=== PATIENT | female | born 1945 | race Caucasian/White ===

== ENCOUNTER → 2018-08-07 | Outpatient (CLI) | payer MEDICARE ==
--- NOTE | 2018-08-13 08:35 | MM ---
Reason for exam: screening (asymptomatic). Last mammogram was performed 1 year ago. History: Patient is postmenopausal. Benign excisional biopsy of the right breast. Taking estrogen beginning at age 34. Physical Findings: A clinical breast exam by your physician is recommended on an annual basis and results should be correlated with mammographic findings. MG Screening Mammo w CAD Bilateral CC and MLO view(s) were taken. Prior study comparison: August 07, 2017, mammogram, performed at [facility]. September 06, 2016, mammogram, performed at [facility]. January 02, 2015, mammogram, performed at [facility]. October 14, 2008, right breast mammogram dig work up. September 30, 2008, bilateral digital screening mammogram. The breast tissue is extremely dense which could obscure a lesion on mammography. No significant changes when compared with prior studies. ASSESSMENT: Benign, BI-RAD 2 RECOMMENDATION: Routine screening mammogram of both breasts in 1 year.
== END | disposition home or self-care (01) ==
LOC: RADMAMWWP 10:59
PROVIDERS: ATTEND Obstetrics & Gynecology
DX: Z12.31 Encounter for screening mammogram for malignant neoplasm of breast (principal)
CPT/HCPCS: 77067

== ENCOUNTER → 2018-08-07 | Outpatient (CLI) | payer MEDICARE ==
[2018-08-07 10:21] VITALS: BP 112/63; PULSE 68
--- NOTE | 2018-08-07 11:07 | P.HPOB ---
History of Present Illness H&P Date: 08/07/18 Chief Complaint: The patient is here for her routine gynecologic exam and mammogram. This is a 72-year-old with an LMP of 1984. She is status post CLARISSA BSO for uterine fibroids. The patient is here to establish with this office. It has been more than 5 years since her last pelvic exam. She is without gynecologic complaints. Review of Systems She has lost about 13 pounds over the past year. She attributes this to one of her medications. She denies respiratory, cardiac and G.I. problems. She denies maltreatment or problems with falling. : she denies any significant problems with urinary leakage. Past Medical History Past Medical History: Hyperlipidemia, Hypertension, Neurologic Disorder (Brain tumor followed conservatively), Seizure Disorder (Complex partial seizures), Sleep Apnea/CPAP/BIPAP, Thyroid Disorder Additional Past Medical History / Comment(s): Interstitial cystitis, Intraparenchymal cyst,brain tumor since approximately 2005,complex partial seizures,hemorrhoids. 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 History of Any Multi-Drug Resistant Organisms: None Reported Past Surgical History: Appendectomy (At time of hysterectomy), Breast Surgery ( Right biopsy), Hysterectomy (CLARISSA BSO in 1984), Tonsillectomy Additional Past Surgical History / Comment(s): Cataract r eye implant,l eye implant. Colonoscopy 2013 (multiple in past). Past Psychological History: No Psychological Hx Reported Smoking Status: Never smoker Past Alcohol Use History: None Reported Past Drug Use History: None Reported Additional History: She has been since 1964. She is retired. She power in [place]. - Past Family History Father Family Medical History: Cancer (Colon cancer) Additional Family Medical History / Comment(s): Paternal grandfather and grandmother both had colon cancer. Mother Additional Family Medical History / Comment(s): Dementia Sister(s) Family Medical History: Diabetes Mellitus Medications and Allergies Home Medications Medication Instructions Recorded Confirmed Type Atorvastatin [Lipitor] 10 mg PO DAILY 08/07/18 08/07/18 History Biotin 2,000 mcg PO 08/07/18 History Carvedilol [Coreg] 6.25 mg PO DAILY 08/07/18 08/07/18 History Carvedilol [Coreg] PO DAILY 08/07/18 History Cholecalciferol (Vitamin D3) 2,000 cap PO DAILY 08/07/18 08/07/18 History [Vitamin D3] Diazepam [Valium] PO HS 08/07/18 History Famotidine [Pepcid] 20 mg PO BID 08/07/18 08/07/18 History Levothyroxine Sodium [Tirosint] 0.05 mcg PO DAILY 08/07/18 08/07/18 History Multivitamin [Multivitamins Adult PO DAILY 08/07/18 History Gummies] Spironolactone-Hctz 25-25Mg tab PO DAILY 08/07/18 History [Aldactazide 25-25 MG] Ubidecarenone [Co Q-10] 200 mg PO DAILY 08/07/18 08/07/18 History lamoTRIgine [LaMICtal] 75 mg PO DAILY 08/07/18 08/07/18 History levETIRAcetam [Keppra] 750 mg PO DAILY 08/07/18 08/07/18 History Allergies Allergy/AdvReac Type Severity Reaction Status Date / Time iodine AdvReac Intermediate Nausea & Unverified 08/07/18 10:49 Vomiting orphenadrine [From Norflex] AdvReac Intermediate Nausea Unverified 08/07/18 10: 49 phenobarbital AdvReac Intermediate Nausea Unverified 08/07/18 10:49 propranolol [From Inderal LA] AdvReac Intermediate Nausea Unverified 08/07/18 10 :49 sulfabenzamide AdvReac Intermediate Nausea Unverified 08/07/18 10:49 erythromycin base AdvReac Nausea Unverified 08/07/18 10:49 Milk Containing Products AdvReac Diarrhea Unverified 08/07/18 10:49 [Dairy] ofloxacin [From Floxin] AdvReac Nausea Unverified 08/07/18 10:49 shellfish derived [Shellfish] AdvReac Rash/Hives Unverified 08/07/18 10:49 Sulfa (Sulfonamide AdvReac Nausea & Unverified 08/07/18 10:49 Antibiotics) Vomiting terfenadine [From Seldane] AdvReac Nausea Unverified 08/07/18 10:49 Exam Vital Signs Pulse BP 08/07/18 10:17 68 112/63 Intake and Output 08/06/18 08/07/18 08/07/18 22:59 06:59 14:59 Other: Weight 53.07 kg Temperature 98.2, height 5'4", weight 117 pounds, BMI 20.1. This is a well-developed well-nourished white female who is alert and oriented times 3 in no acute distress. HEENT: Within normal limits. NECK: Supple without mass or thyromegaly. CHEST AND LUNGS: Clear to auscultation. HEART: Regular rate and rhythm. BREASTS: Are without mass or discharge. AXILLARY EXAM: Negative for adenopathy. BACK: Negative for CVA tenderness. ABDOMEN: Soft, nontender, without palpable masses. PELVIC EXAM: External genitalia appears normal with moderate atrophy. Vagina appears normal with moderate atrophy. There is no evidence of prolapse. Bimanual examination is negative for mass or tenderness. RECTAL EXAM: Rectovaginal exam is negative for mass or tenderness and is negative for occult blood. EXTREMITIES: Nontender. IMPRESSION: 1. 72-year-old menopausal female who is status post CLARISSA BSO for benign reasons with normal gynecologic exam. PLAN: 1. Pap smears have been discontinued. 2. Self breast awareness was discussed with the patient. 3. Screening mammogram will be done today. 4. Osteoporosis prevention was discussed. She states she had one bone density test done several years ago and she believes it was normal. We will plan on repeating the bone density test next year. 5. She did get her flu shot this fall. 6. She will return in one year.
== END ==
LOC: WWCWWP 09:15
PROVIDERS: ATTEND Obstetrics & Gynecology
DX: Z53.9 Procedure and treatment not carried out, unspecified reason (principal)

== ENCOUNTER → 2019-09-03 | Outpatient (CLI) | payer MEDICARE ==
[2019-09-03 10:29] VITALS: BP 134/78; PULSE 63; RESP 18; TEMP 97.8
--- NOTE | 2019-09-03 11:09 | P.HPOB ---
History of Present Illness H&P Date: 09/03/19 Chief Complaint: The patient is here for her routine gynecologic exam and ma mmogram. This is a 74-year-old with an LMP of 1984. The patient is status post CLARISSA/BSO for uterine fibroids. The patient is without gynecologic complaints. Review of Systems She has lost 3 pounds over the past year. She denies respiratory, cardiac and G.I. problems. She denies maltreatment or problems with falling. : she denies any significant problems with urinary leakage. Past Medical History Past Medical History: Hypertension, Sleep Apnea/CPAP/BIPAP, Thyroid Disorder Additional Past Medical History / Comment(s): Interstitial cystitis,Intraparenchymal cyst,brain tumor,high cholesterol,complex partial seizures,hemmerroids. 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 History of Any Multi-Drug Resistant Organisms: None Reported Past Surgical History: Hysterectomy, Tonsillectomy Additional Past Surgical History / Comment(s): CLARISSA/BSO in 1984. Right breast biopsy. Cataract r eye implant,L eye implant. Colonoscopy 2013(multiple in past, next after 5yrs). Past Psychological History: No Psychological Hx Reported Smoking Status: Never smoker Past Alcohol Use History: None Reported Past Drug Use History: None Reported Additional History: She has been since 1965 and is retired. She is sexually active. She power in [place]. - Past Family History Father Family Medical History: Cancer Additional Family Medical History / Comment(s): Colon cancer. Paternal grandfather and grandmother both had colon cancer. Mother Additional Family Medical History / Comment(s): Dementia Sister(s) Family Medical History: Diabetes Mellitus Medications and Allergies Home Medications Medication Instructions Recorded Confirmed Type Atorvastatin [Lipitor] 10 mg PO DAILY 08/07/18 09/03/19 History Biotin 2,000 mcg PO DAILY 08/07/18 09/03/19 History Carvedilol [Coreg] 6.25 mg PO DAILY 08/07/18 09/03/19 History Cholecalciferol (Vitamin D3) 2,000 cap PO DAILY 08/07/18 09/03/19 History [Vitamin D3] Diazepam [Valium] 0.5 mg PO BID 08/07/18 09/03/19 History Famotidine [Pepcid] 20 mg PO BID 08/07/18 09/03/19 History Levothyroxine Sodium [Tirosint] 0.05 mcg PO DAILY 08/07/18 09/03/19 History Multivitamin [Multivitamins Adult 1 tab PO DAILY 08/07/18 09/03/19 History Gummies] Spironolactone-Hctz 25-25Mg 1 tab PO DAILY 08/07/18 09/03/19 History [Aldactazide 25-25 MG] Ubidecarenone [Co Q-10] 200 mg PO DAILY 08/07/18 09/03/19 History lamoTRIgine [LaMICtal] 75 mg PO DAILY 08/07/18 09/03/19 History carBAMazepine [TEGretol] 200 mg PO Q12H 09/03/19 09/03/19 History Allergies Allergy/AdvReac Type Severity Reaction Status Date / Time iodine AdvReac Intermediate Nausea & Unverified 09/03/19 10:30 Vomiting orphenadrine [From Norflex] AdvReac Intermediate Nausea Unverified 09/03/19 10:30 phenobarbital AdvReac Intermediate Nausea Unverified 09/03/19 10:30 propranolol [From Inderal LA] AdvReac Intermediate Nausea Unverified 09/03/19 10:30 sulfabenzamide AdvReac Intermediate Nausea Unverified 09/03/19 10:30 erythromycin base AdvReac Nausea Unverified 09/03/19 10:30 Milk Containing Products AdvReac Diarrhea Unverified 09/03/19 10:30 [Dairy] ofloxacin [From Floxin] AdvReac Nausea Unverified 09/03/19 10:30 shellfish derived [Shellfish] AdvReac Rash/Hives Unverified 09/03/19 10:30 Sulfa (Sulfonamide AdvReac Nausea & Unverified 09/03/19 10:30 Antibiotics) Vomiting terfenadine [From Seldane] AdvReac Nausea Unverified 09/03/19 10:30 Exam Vital Signs Temp Pulse Resp BP Pulse Ox 09/03/19 10:24 97.8 F 63 18 134/78 100 Intake and Output 09/02/19 09/03/19 09/03/19 22:59 06:59 14:59 Other: Weight 51.71 kg Height 5 feet 4 inches, weight 114 pounds, BMI 19.6. This is a well-developed well-nourished white female who is alert and oriented times 3 in no acute distress. HEENT: Within normal limits. NECK: Supple without mass or thyromegaly. CHEST AND LUNGS: Clear to auscultation. HEART: Regular rate and rhythm. BREASTS: Are without mass or discharge. AXILLARY EXAM: Negative for adenopathy. BACK: Negative for CVA tenderness. ABDOMEN: Soft, nontender, without palpable masses. PELVIC EXAM: External genitalia appears normal with moderate atrophy. Vagina appears normal with mild to moderate atrophy. There is no evidence of prolapse. Bimanual examination is negative for mass or tenderness. RECTAL EXAM: Rectovaginal exam is negative for mass or tenderness and is negative for occult blood. EXTREMITIES: Nontender. IMPRESSION: 1. 74-year-old menopausal female status post CLARISSA/BSO for benign reasons with normal gynecologic exam. PLAN: 1. Pap smears have been discontinued. 2. Self breast awareness was discussed with the patient. 3. Screening mammogram will be done today. 4. Osteoporosis prevention was discussed. I have stressed the importance of adequate calcium, vitamin D and regular exercise. Recommended amounts of calcium and vitamin D were also discussed. I have recommended bone density testing since it has been many years since her last one. The order slip will be mailed to the patient. 5. She did receive her flu shot this fall. 6. The patient was advised to return in 1-2 years for her well woman examination.
--- NOTE | 2019-09-04 10:13 | MM ---
Reason for exam: screening (asymptomatic). Last mammogram was performed 1 year and 1 month ago. History: Patient is postmenopausal. Benign excisional biopsy of the right breast. Took hormonal contraceptives for 6 months. Took estrogen beginning at age 34. Physical Findings: A clinical breast exam by your physician is recommended on an annual basis and results should be correlated with mammographic findings. MG 3D Screening Mammo W/Cad Bilateral CC and MLO view(s) were taken. Prior study comparison: August 07, 2018, bilateral MG screening mammo w CAD. August 07, 2017, mammogram, performed at [facility]. The breast tissue is extremely dense which could obscure a lesion on mammography. There is no discrete abnormality. ASSESSMENT: Negative, BI-RAD 1 RECOMMENDATION: Routine screening mammogram of both breasts in 1 year.
== END ==
LOC: WWCWWP 10:01
PROVIDERS: ATTEND Obstetrics & Gynecology
DX: Z12.31 Encounter for screening mammogram for malignant neoplasm of breast (principal)
CPT/HCPCS: 77063; 77067

== ENCOUNTER → 2019-09-19 | Outpatient (CLI) | payer MEDICARE ==
--- NOTE | 2019-09-19 13:45 | BD ---
EXAMINATION TYPE: Axial Bone Density DATE OF EXAM: 09/19/2019 COMPARISON: NONE CLINICAL HISTORY: 44 YR OLD FEMALE.....ICD-10 CODE: POST MENOPAUSAL STATUS Height: 62.5 Weight: 114 FRAX RISK QUESTIONS: History of Fracture in Adulthood: YES Secondary Osteoporosis: YES 3. Menopause before 45: YES, AT 34 YRS OLD RISK FACTORS HISTORY OF: HX OF TOE FXs > AGE 50 Diet low in dairy products/other sources of calcium: YES Postmenopausal woman: YES AT AGE 34...TOTAL HYST If Premenopausal, do you have irregular periods: YES, IN THE PAST FOR ABOUT 3 YRS Hyperparathyroidism: NO Adrenal Insufficiency: NO MEDICATIONS: Thyroid Medications: YES, SYNTHROID, FOR ABOUT 40 YRS Additional Medications: BP MEDS, ANTI SEIZURE MED, VIT D, STATIN FOR CHOLESTEROL. Additional History: HX OF BRAIN TUMOR, CHOLESTEROL, HYPERTENSION EXAM MEASUREMENTS: Bone mineral densitometry was performed using the [employer]. Bone mineral density as measured about the Lumbar spine is: ----- L1-L4(G/cm2): 0.871 T Score Values are as follows: ----- L1: -3.5 ----- L2: -3.0 ----- L3: -2.2 ----- L4: -2.1 ----- L1-L4: -2.6 Bone mineral density FIRST DEXA SCAN.......BASELINE STUDY Bone mineral density about the R hip (g/cm2): 0.656 Bone mineral density about the L hip (g/cm2): 0.646 T Score values are as follows: -----R Neck: -2.5 -----L Neck: -2.6 -----R Total: -2.8 -----L Total: -2.9 Bone mineral density FIRST DEXA SCAN......BASELINE STUDY FRAX%s: THERE IS A 22.4% CHANCE FOR A MAJOR OSTEOPOROTIC FX AND A 7.4% FOR HIP.....PROBABILITY FO R FX IN 10 YRS TIME IMPRESSION: Osteoporosis bilateral femoral and lumbar spine. NOTE: T-SCORE=SD OF THE YOUNG ADULT MEAN.
== END ==
LOC: RADBDWWP 10:33
PROVIDERS: ATTEND Obstetrics & Gynecology
DX: M81.8 Other osteoporosis without current pathological fracture (principal); Z78.0 Asymptomatic menopausal state
CPT/HCPCS: 77080

== ENCOUNTER → 2020-09-15 | Outpatient (CLI) | payer MEDICARE ==
[~2020-09-15] MED LIST: DENOSUMAB 60 MG/ML 1 ML SYRINGE SQ NR
[2020-09-15 10:31] VITALS: BP 168/84; PULSE 72; RESP 16; TEMP 98.2
== END | disposition home or self-care (01) ==
LOC: PROCWHC3 09:48
PROVIDERS: ATTEND Internal Medicine Geriatric Medicine
DX: M81.0 Age-related osteoporosis without current pathological fracture (principal)
CPT/HCPCS: 96372; J0897

== ENCOUNTER → 2020-11-03 | Outpatient (CLI) | payer MEDICARE ==
[2020-11-03 09:44] VITALS: BP 164/80; PULSE 86; RESP 18; TEMP 97.7
--- NOTE | 2020-11-03 10:15 | P.HPOB ---
History of Present Illness H&P Date: 11/03/20 Chief Complaint: The patient is here for her routine gynecologic exam and ma mmogram. This is a 75-year-old with an LMP of 1984. She is status post CLARISSA/BSO for benign reasons. She is without gynecologic complaints. She is no longer sexually active. Review of Systems Weight has been stable. She denies respiratory, cardiac and G.I. problems. She denies maltreatment. She has fallen this past year without significant injury and she attributes this to her seizure medications. Past Medical History Past Medical History: Hypertension, Sleep Apnea/CPAP/BIPAP, Thyroid Disorder Additional Past Medical History / Comment(s): Interstitial cystitis,Intraparenchymal cyst,brain tumor,high cholesterol,complex partial seizures,hemmerroids. 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 OSTEOPOROSIS. History of Any Multi-Drug Resistant Organisms: None Reported Past Surgical History: Hysterectomy, Tonsillectomy Additional Past Surgical History / Comment(s): CLARISSA/BSO in 1984. Right breast biopsy. Cataract r eye implant,L eye implant. Colonoscopy 2019(multiple in past, next after 5yrs). Past Anesthesia/Blood Transfusion Reactions: No Reported Reaction Past Psychological History: No Psychological Hx Reported Smoking Status: Never smoker Past Alcohol Use History: None Reported Past Drug Use History: None Reported Additional History: She has been since 1964 and is retired. She is no longer sexually active. She typically power in [place] in her RV. - Past Family History Father Family Medical History: Cancer Additional Family Medical History / Comment(s): Colon cancer. Paternal grandfather and grandmother both had colon cancer. Mother Additional Family Medical History / Comment(s): Dementia Sister(s) Family Medical History: Diabetes Mellitus Medications and Allergies Home Medications Medication Instructions Recorded Confirmed Type Atorvastatin [Lipitor] 10 mg PO DAILY 08/07/18 11/03/20 History Biotin 2,000 mcg PO DAILY 08/07/18 11/03/20 History Cholecalciferol (Vitamin D3) 2,000 cap PO DAILY 08/07/18 11/03/20 History [Vitamin D3] Levothyroxine Sodium [Tirosint] 0.05 mcg PO DAILY 08/07/18 11/03/20 History Multivitamin [Multivitamins Adult 1 tab PO DAILY 08/07/18 11/03/20 History Gummies] Spironolactone-Hctz 25-25Mg 1 tab PO DAILY 08/07/18 11/03/20 History [Aldactazide 25-25 MG] Ubidecarenone [Co Q-10] 200 mg PO DAILY 08/07/18 11/03/20 History carvediloL [Coreg] 6.25 mg PO BID 08/07/18 11/03/20 History lamoTRIgine [LaMICtal] 200 mg PO DAILY 08/07/18 11/03/20 History carBAMazepine [TEGretol] 100 mg PO DAILY 09/03/19 11/03/20 History carBAMazepine [TEGretol] 500 mg PO HS 09/15/20 11/03/20 History lamoTRIgine [LaMICtal] 300 mg PO HS 09/15/20 11/03/20 History Denosumab [Prolia] 60 mg SQ ONCE 11/03/20 11/03/20 History L.acidoph,Paracasei, B.lactis 1 each PO DAILY 11/03/20 11/03/20 History [Probiotic] LORazepam [Ativan] 0.25 mg PO QAM 11/03/20 11/03/20 History Vitafusion 1 tab PO DAILY 11/03/20 11/03/20 History Allergies Allergy/AdvReac Type Severity Reaction Status Date / Time iodine AdvReac Intermediate Nausea & Unverified 11/03/20 09:36 Vomiting orphenadrine [From Norflex] AdvReac Intermediate Nausea Unverified 11/03/20 09:36 phenobarbital AdvReac Intermediate Nausea Unverified 11/03/20 09:36 propranolol [From Inderal LA] AdvReac Intermediate Nausea Unverified 11/03/20 09:36 sulfabenzamide AdvReac Intermediate Nausea Unverified 11/03/20 09:36 erythromycin base AdvReac Nausea Unverified 11/03/20 09:36 Milk Containing Products AdvReac Diarrhea Unverified 11/03/20 09:36 [Dairy] ofloxacin [From Floxin] AdvReac Nausea Unverified 11/03/20 09:36 shellfish derived [Shellfish] AdvReac Rash/Hives Unverified 11/03/20 09:36 Sulfa (Sulfonamide AdvReac Nausea & Unverified 11/03/20 09:36 Antibiotics) Vomiting terfenadine [From Seldane] AdvReac Nausea Unverified 11/03/20 09:36 Exam Vital Signs Temp Pulse Resp BP Pulse Ox 11/03/20 09:37 97.7 F 86 18 164/80 100 Intake and Output 11/02/20 11/03/20 11/03/20 22:59 06:59 14:59 Other: Weight 52.163 kg Height 5 feet 3 inches, weight 115 pounds, BMI 20.4. This is a well-developed well-nourished white female who is alert and oriented times 3 in no acute distress. HEENT: Within normal limits. NECK: Supple without mass or thyromegaly. CHEST AND LUNGS: Clear to auscultation. HEART: Regular rate and rhythm. BREASTS: Are without mass or discharge. AXILLARY EXAM: Negative for adenopathy. BACK: Negative for CVA tenderness. ABDOMEN: Soft, nontender, without palpable masses. PELVIC EXAM: External genitalia appears normal with a moderate atrophy. Vagina appears normal moderate atrophy. There is no evidence of prolapse. Bimanual examination is negative for mass or tenderness. RECTAL EXAM: Rectovaginal exam is negative for mass or tenderness and is negative for occult blood. EXTREMITIES: Nontender. IMPRESSION: 1. 75-year-old menopausal female status post CLARISSA/BSO for benign reasons with normal gynecologic exam. 2. History of osteoporosis on Prolia through her PCP. 3. Elevated blood pressure with history of chronic hypertension. PLAN: 1. Pap smears have been discontinued. 2. Self breast awareness was discussed with the patient. 3. Greening mammogram will be done today. 4. Her elevated blood pressure was discussed. I have recommended that she check her own blood pressure on a regular basis since she has her own blood pressure cuff. She will follow-up with Dr. Trevizo for blood pressure elevations. 5. She did get a flu shot last fall and plans to get a COVID vaccination when it becomes available to her. 6. The patient was advised to return in 1-2 years for her well woman examination.
--- NOTE | 2020-11-04 09:49 | MM ---
Reason for exam: screening (asymptomatic). Last mammogram was performed 1 year and 2 months ago. History: Patient is postmenopausal. Benign excisional biopsy of the right breast. Took hormonal contraceptives for 6 months. Took estrogen beginning at age 34. Physical Findings: A clinical breast exam by your physician is recommended on an annual basis and results should be correlated with mammographic findings. MG 3D Screening Mammo W/Cad Bilateral CC and MLO view(s) were taken. Prior study comparison: September 03, 2019, bilateral MG 3d screening mammo w/cad. August 07, 2018, bilateral MG screening mammo w CAD. The breast tissue is heterogeneously dense. This may lower the sensitivity of mammography. There is no discrete abnormality. ASSESSMENT: Benign, BI-RAD 2 RECOMMENDATION: Routine screening mammogram of both breasts in 1 year.
== END | disposition home or self-care (01) ==
LOC: WWCWWP 09:15
PROVIDERS: ATTEND Obstetrics & Gynecology
DX: Z12.31 Encounter for screening mammogram for malignant neoplasm of breast (principal)
CPT/HCPCS: 77063; 77067

== ENCOUNTER → 2021-03-17 | Outpatient (CLI) | payer MEDICARE ==
[2021-03-17 10:29] VITALS: BP 138/80; PULSE 76; RESP 16; TEMP 97.7
== END ==
LOC: PROCWHC3 10:02
PROVIDERS: ATTEND Internal Medicine Geriatric Medicine
DX: M81.0 Age-related osteoporosis without current pathological fracture (principal); Z91.041 Radiographic dye allergy status; Z88.2 Allergy status to sulfonamides; Z88.8 Allergy status to other drugs, medicaments and biological substances; Z88.1 Allergy status to other antibiotic agents; Z91.011 Allergy to milk products; Z91.013 Allergy to seafood
CPT/HCPCS: 96372; J0897

== ENCOUNTER → 2021-09-17 | Outpatient (CLI) | payer MEDICARE | END | disposition home or self-care (01) | LOC: PROCWHC3 10:09 | PROVIDERS: ATTEND Internal Medicine Geriatric Medicine | DX: M81.0 Age-related osteoporosis without current pathological fracture (principal) | CPT/HCPCS: 96372; J0897 ==

== ENCOUNTER → 2022-03-21 | Outpatient (CLI) | payer MEDICARE ==
[2022-03-21 11:41] VITALS: BP 125/80; PULSE 60; RESP 16; TEMP 97.8
== END ==
LOC: PROCWHC3 10:59
PROVIDERS: ATTEND Internal Medicine Geriatric Medicine
DX: M81.0 Age-related osteoporosis without current pathological fracture (principal); Z91.041 Radiographic dye allergy status; Z88.2 Allergy status to sulfonamides; Z88.1 Allergy status to other antibiotic agents; Z91.011 Allergy to milk products; Z91.013 Allergy to seafood
CPT/HCPCS: 96372; J0897

== ENCOUNTER 2022-06-23 11:24 | Inpatient (IN) | payer MEDICARE ==
[2022-06-23 14:58] LABS: Basophils % (A) 1 %; Eosinophils # (A) 0.1 k/uL (0-0.7); Eosinophils % (A) 3 %; HCT 34.5 % (34.0-46.0); HGB 11.6 gm/dL (11.4-16.0); Lymphocytes % (A) 29 %; MCH 34.6 pg (25.0-35.0); MCHC 33.6 g/dL (31.0-37.0); MCV 103.1 fL (80.0-100.0); Macrocytosis Slight; Mean Platelet Volume 7.9; Monocytes # (A) 0.2 k/uL (0-1.0); Monocytes % (A) 7 %; Neutrophils % (A) 58 %; Platelet Count 190 k/uL (150-450); RBC 3.35 m/uL (3.80-5.40); RDW 12.6 % (11.5-15.5); WBC 3.5 k/uL (3.8-10.6)
[2022-06-23 15:11] LABS: Albumin 4.3 g/dL (3.5-5.0); Calcium 9.3 mg/dL (8.4-10.2); Potassium 4.4 mmol/L (3.5-5.1); Total Bilirubin 0.5 mg/dL (0.2-1.3); Total Protein 6.4 g/dL (6.3-8.2)
--- NOTE | 2022-06-23 17:03 | XR ---
EXAMINATION TYPE: XR chest 2V DATE OF EXAM: 06/23/2022 COMPARISON: None HISTORY: 76-year-old female abnormal CT. Outside CT showing fluid around the heart last week per hist ory. TECHNIQUE: PA and lateral views FINDINGS: Cardiac/pericardiac silhouette is mildly enlarged. There is mild hyperinflation. Possible trace pleur al effusion on the lateral view. Focal nodularity periphery of the left upper to midlung could relate to be left anterior third rib or underlying pulmonary nodule. Otherwise, no consolidation. IMPRESSION: 1. Mild enlargement of the cardiac/pericardiac silhouette. If a recent CT showed pericardial effusion , the enlarged heart silhouette could reflect a pericardial effusion. 2. Possible underlying COPD. Clinically correlate. A trace pleural effusion is not excluded on the la teral view. 3. Either hypertrophic callus involving the left anterior third rib (relating to an old fracture) connie tanya underlying left upper lobe pulmonary nodule. Correlate with findings on outside CT.
--- NOTE | 2022-06-23 17:52 | ED ---
General Adult HPI - General Chief complaint: Recheck/Abnormal Lab/Rx Stated complaint: urogenital, fluid on heart Time Seen by Provider: 06/23/22 16:08 Source: patient Mode of arrival: ambulatory Limitations: no limitations - History of Present Illness Initial comments: Patient is a 76-year-old female with history of hypertension, hyperlipidemia, hypothyroidism, and hysterectomy who presents to the emergency department with a chief complaint of vaginal bleeding and abnormal computed tomography scan. Patient states this past Monday she woke up and noticed blood in her underwear. Denies blood thinner use. At this time she was experiencing mild lower abdominal pain. Patient had an episode of blood in urine the next day and has not had any further episodes of bleeding. She was evaluated at [facility] where CT of the abdomen was performed. CT showed moderate right-sided hydronephrosis without evidence of obstruction. Also showed an incidental finding on cardiomegaly with pericardial effusion. Patient saw her primary care provider Dr. Santhosh tejada who sent her to the emergency department for laboratory studies and echocardiogram. Patient states she feels well now and has no concerns. She denies fever, chills, chest pain, palpitations, shortness of breath, cough, abdominal pain, side pain, nausea, vomiting, blood in urine, burning with urination, blood in stool, leg swelling. Patient has never seen a tack puller and has never had an echocardiogram of her heart. - Related Data Home Medications Medication Instructions Recorded Confirmed Atorvastatin [Lipitor] 10 mg PO DAILY 08/07/18 09/17/21 Biotin [Biotin Disolve] 2,000 mcg PO DAILY 08/07/18 09/17/21 Cholecalciferol (Vitamin D3) 2,000 cap PO DAILY 08/07/18 09/17/21 [Vitamin D3] Levothyroxine Sodium [Tirosint] 0.05 mcg PO DAILY 08/07/18 09/17/21 Multivitamin [Multivitamins Adult 1 tab PO DAILY 08/07/18 09/17/21 Gummies] Spironolactone-Hctz 25-25Mg 1 tab PO BID 08/07/18 09/17/21 [Aldactazide 25-25 MG] Ubidecarenone [Co Q-10] 200 mg PO DAILY 08/07/18 09/17/21 carvediloL [Coreg] 6.25 mg PO BID 08/07/18 09/17/21 lamoTRIgine [LaMICtal] 150 mg PO DAILY 08/07/18 09/17/21 lamoTRIgine [LaMICtal] 150 mg PO HS 09/15/20 09/17/21 Denosumab [Prolia] 60 mg SQ ONCE 11/03/20 09/17/21 L.acidoph,Paracasei, B.lactis 1 each PO DAILY 11/03/20 09/17/21 [Probiotic] Vitafusion 1 tab PO DAILY 11/03/20 09/17/21 cloBAZam [Onfi] 20 mg PO BID 09/17/21 09/17/21 Allergies Allergy/AdvReac Type Severity Reaction Status Date / Time iodine AdvReac Intermediate Nausea & Verified 06/23/22 12:30 Vomiting orphenadrine [From Norflex] AdvReac Intermediate Nausea Verified 06/23/22 12:30 phenobarbital AdvReac Intermediate Nausea Verified 06/23/22 12:30 propranolol [From Inderal LA] AdvReac Intermediate Nausea Verified 06/23/22 12:30 sulfabenzamide AdvReac Intermediate Nausea Verified 06/23/22 12:30 erythromycin base AdvReac Nausea Verified 06/23/22 12:30 Milk Containing Products AdvReac Diarrhea Verified 06/23/22 12:30 [Dairy] ofloxacin [From Floxin] AdvReac Nausea Verified 06/23/22 12:30 shellfish derived [Shellfish] AdvReac Rash/Hives Verified 06/23/22 12:30 Sulfa (Sulfonamide AdvReac Nausea & Verified 06/23/22 12:30 Antibiotics) Vomiting terfenadine [From Seldane] AdvReac Nausea Verified 06/23/22 12:30 Review of Systems ROS Statement: Those systems with pertinent positive or pertinent negative responses have been documented in the HPI. ROS Other: All systems not noted in ROS Statement are negative. Past Medical History Past Medical History: Hypertension, Sleep Apnea/CPAP/BIPAP, Thyroid Disorder Additional Past Medical History / Comment(s): Interstitial cystitis,Intraparenchymal cyst,brain tumor,high cholesterol,complex partial seizures,hemmerroids. 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 OSTEOPOROSIS. History of Any Multi-Drug Resistant Organisms: None Reported Past Surgical History: Hysterectomy, Tonsillectomy Additional Past Surgical History / Comment(s): CLARISSA/BSO in 1984. Right breast biopsy. Cataract r eye implant,L eye implant. Colonoscopy 2019(multiple in past, next after 5yrs). Past Anesthesia/Blood Transfusion Reactions: No Reported Reaction Past Psychological History: No Psychological Hx Reported Smoking Status: Never smoker - Past Family History Father Family Medical History: Cancer Additional Family Medical History / Comment(s): Colon cancer. Paternal grandfather and grandmother both had colon cancer. Mother Additional Family Medical History / Comment(s): Dementia Sister(s) Family Medical History: Diabetes Mellitus General Exam Limitations: no limitations General appearance: alert, in no apparent distress Head exam: Present: atraumatic, normocephalic, normal inspection Respiratory exam: Present: normal lung sounds bilaterally. Absent: respiratory distress, wheezes, rales, rhonchi, stridor Cardiovascular Exam: Present: regular rate, normal rhythm, normal heart sounds. Absent: systolic murmur, diastolic murmur, rubs, gallop, clicks GI/Abdominal exam: Present: soft, normal bowel sounds. Absent: distended, tenderness, guarding, rebound, rigid Neurological exam: Present: alert, oriented X3, CN II-XII intact Psychiatric exam: Present: normal affect, normal mood Skin exam: Present: warm, dry, intact, normal color. Absent: rash Course Vital Signs 06/23/22 06/23/22 12:27 14:45 Temperature 98.2 F 97.3 F L Pulse Rate 60 54 L Respiratory 20 Rate Blood Pressure 118/68 127/74 O2 Sat by Pulse 99 100 Oximetry Medical Decision Making - Medical Decision Making This is a 76-year-old female who presents for evaluation of hematuria and cardiomegaly and pericardial effusion recently found in computed tomography scan. Patient well-appearing. Vital within normal limits. Patient has no concerns. No chest pain or shortness of breath. EKG shows sinus bradycardia without ST or T-wave changes. Laboratory studies obtained and are relatively unremarkable. Troponin and BNP are within normal limits. There is good kidney function. Urinalysis does not indicate infection or blood.nChest x-ray shows mild enlargement of the cardiac/. Cardiac silhouette which could reflect pericardial effusion as well as possible trace pleural effusion. Patient will be admitted for pericardial effusion. Cardiology on consult. Echo ordered for the morning as well as renal ultrasound for possible hydronephrosis. Dr. Marin my attending. - Lab Data Result diagrams: 06/23/22 14:43 06/23/22 14:43 Lab Results 06/23/22 06/23/22 06/23/22 Range/Units 14:43 14:43 14:43 WBC 3.5 L (3.8-10.6) k/uL RBC 3.35 L (3.80-5.40) m/uL Hgb 11.6 (11.4-16.0) gm/dL Hct 34.5 (34.0-46.0) % MCV 103.1 H (80.0-100.0) fL MCH 34.6 (25.0-35.0) pg MCHC 33.6 (31.0-37.0) g/dL RDW 12.6 (11.5-15.5) % Plt Count 190 (150-450) k/uL MPV 7.9 Neutrophils % 58 % Lymphocytes % 29 % Monocytes % 7 % Eosinophils % 3 % Basophils % 1 % Neutrophils # 2.0 (1.3-7.7) k/uL Lymphocytes # 1.0 (1.0-4.8) k/uL Monocytes # 0.2 (0-1.0) k/uL Eosinophils # 0.1 (0-0.7) k/uL Basophils # 0.0 (0-0.2) k/uL Macrocytosis Slight Sodium 139 (137-145) mmol/L Potassium 4.4 (3.5-5.1) mmol/L Chloride 100 (98-107) mmol/L Carbon Dioxide 31 H (22-30) mmol/L Anion Gap 8 mmol/L BUN 16 (7-17) mg/dL Creatinine 0.83 (0.52-1.04) mg/dL Est GFR (CKD-EPI)AfAm 79 (>60 ml/min/1.73 sqM) Est GFR (CKD-EPI)NonAf 69 (>60 ml/min/1.73 sqM) Glucose 83 (74-99) mg/dL Plasma Lactic Acid Tyrell (0.7-2.0) mmol/L Calcium 9.3 (8.4-10.2) mg/dL Total Bilirubin 0.5 (0.2-1.3) mg/dL AST 28 (14-36) U/L ALT 22 (4-34) U/L Alkaline Phosphatase 60 (38-126) U/L Troponin I (0.000-0.034) ng/mL NT-Pro-B Natriuret Pep pg/mL Total Protein 6.4 (6.3-8.2) g/dL Albumin 4.3 (3.5-5.0) g/dL Amylase 124 H (30-110) U/L Lipase 202 (23-300) U/L Urine Color Light Yellow Urine Appearance Clear (Clear) Urine pH 6.5 (5.0-8.0) Ur Specific [place] 1.010 (1.001-1.035) Urine Protein Negative (Negative) Urine Glucose (UA) Negative (Negative) Urine Ketones Negative (Negative) Urine Blood Negative (Negative) Urine Nitrite Negative (Negative) Urine Bilirubin Negative (Negative) Urine Urobilinogen <2.0 (<2.0) mg/dL Ur Leukocyte Esterase Small H (Negative) Urine WBC 2 (0-5) /hpf Ur Squamous Epith Cells <1 (0-4) /hpf 06/23/22 06/23/22 06/23/22 Range/Units 14:43 14:43 14:43 WBC (3.8-10.6) k/uL RBC (3.80-5.40) m/uL Hgb (11.4-16.0) gm/dL Hct (34.0-46.0) % MCV (80.0-100.0) fL MCH (25.0-35.0) pg MCHC (31.0-37.0) g/dL RDW (11.5-15.5) % Plt Count (150-450) k/uL MPV Neutrophils % % Lymphocytes % % Monocytes % % Eosinophils % % Basophils % % Neutrophils # (1.3-7.7) k/uL Lymphocytes # (1.0-4.8) k/uL Monocytes # (0-1.0) k/uL Eosinophils # (0-0.7) k/uL Basophils # (0-0.2) k/uL Macrocytosis Sodium (137-145) mmol/L Potassium (3.5-5.1) mmol/L Chloride (98-107) mmol/L Carbon Dioxide (22-30) mmol/L Anion Gap mmol/L BUN (7-17) mg/dL Creatinine (0.52-1.04) mg/dL Est GFR (CKD-EPI)AfAm (>60 ml/min/1.73 sqM) Est GFR (CKD-EPI)NonAf (>60 ml/min/1.73 sqM) Glucose (74-99) mg/dL Plasma Lactic Acid Tyrell <0.5 L (0.7-2.0) mmol/L Calcium (8.4-10.2) mg/dL Total Bilirubin (0.2-1.3) mg/dL AST (14-36) U/L ALT (4-34) U/L Alkaline Phosphatase (38-126) U/L Troponin I <0.012 (0.000-0.034) ng/mL NT-Pro-B Natriuret Pep 329 pg/mL Total Protein (6.3-8.2) g/dL Albumin (3.5-5.0) g/dL Amylase (30-110) U/L Lipase (23-300) U/L Urine Color Urine Appearance (Clear) Urine pH (5.0-8.0) Ur Specific [place] (1.001-1.035) Urine Protein (Negative) Urine Glucose (UA) (Negative) Urine Ketones (Negative) Urine Blood (Negative) Urine Nitrite (Negative) Urine Bilirubin (Negative) Urine Urobilinogen (<2.0) mg/dL Ur Leukocyte Esterase (Negative) Urine WBC (0-5) /hpf Ur Squamous Epith Cells (0-4) /hpf Disposition Clinical Impression: Pericardial effusion, Hematuria Disposition: ADMITTED IP TO THIS HOSP Condition: Good Referrals: Cordell Trevizo MD [Primary Care Provider] - 1-2 days Decision Time: 20:04
[2022-06-23 19:11] LABS: Appearance,Urine Clear (Clear); Bilirubin,Urine Negative (Negative); Blood,Urine Negative (Negative); Color,Urine Light Yellow; Glucose,Urine (UA) Negative (Negative); Ketones,Urine Negative (Negative); Leukocyte Esterase,Urine Small (Negative); Nitrite,Urine Negative (Negative); PH, Urine 6.5 (5.0-8.0); Protein,Urine Negative (Negative); Squamous Epithelial Cell,Urine <1 /hpf (0-4); Urobilinogen,Urine <2.0 mg/dL (<2.0); WBC,Urine 2 /hpf (0-5)
[2022-06-23] MEDS: lamoTRIgine 100 MG TAB PO SCH (20:52)
[2022-06-23] MEDS: ATORVASTATIN 10 MG TAB PO SCH (20:54)
[2022-06-23] MEDS: CHOLECALCIFEROL 25 MCG (1000 IU) TABLET PO SCH (20:54)
[2022-06-23] MEDS: BIOTIN 1000 MCG PO SCH (20:57)
[2022-06-23] MEDS: SODIUM CHLORIDE 0.9% 1,000 ML IV SCH (20:57)
[2022-06-23] MEDS ORDERED: carvediloL 6.25 MG TAB PO SCH (21:00)
[2022-06-23] MEDS ORDERED: lamoTRIgine 100 MG TAB PO SCH (21:00)
[2022-06-23] MEDS: SPIRONOLACTONE-HCTZ 25-25MG 1 EACH TAB PO SCH (21:37)
[2022-06-23] MEDS: traZODone HCL 100 MG TAB PO SCH (21:38)
[2022-06-23] MEDS: CLOBAZAM 20 MG PO SCH (22:43)
[2022-06-24] MEDS: PANTOPRAZOLE 40 MG TABLET PO SCH (06:14)
[2022-06-24] MEDS: LEVOTHYROXINE 50 MCG TAB PO SCH (06:15)
[2022-06-24] MEDS: carvediloL 6.25 MG TAB PO SCH ×2 (06:15→18:03)
[2022-06-24] MEDS ORDERED: MULTIVITAMINS, THERA 1 EACH TAB PO SCH (09:00)
[2022-06-24] MEDS ORDERED: lamoTRIgine 100 MG TAB PO SCH (09:00)
[2022-06-24] MEDS ORDERED: VITAFUSION PO SCH (09:00)
[2022-06-24] MEDS: BIOTIN 1000 MCG PO SCH (10:06)
[2022-06-24] MEDS: CLOBAZAM 20 MG PO SCH (10:06)
[2022-06-24] MEDS: CHOLECALCIFEROL 25 MCG (1000 IU) TABLET PO SCH (10:07)
[2022-06-24] MEDS: lamoTRIgine 100 MG TAB PO SCH ×2 (10:08→20:48)
[2022-06-24] MEDS: SPIRONOLACTONE-HCTZ 25-25MG 1 EACH TAB PO SCH (10:09)
[2022-06-24] MEDS: LACTOBACILLUS ACIDOPH & BULGAR 1 EACH PACKET PO SCH (10:10)
[2022-06-24] MEDS: NON FORMULARY DRUG (Ubidecarenone [Co Q-10] 100 MG Capsule) PO SCH (10:14)
--- NOTE | 2022-06-24 10:29 | US ---
EXAMINATION TYPE: US renals and bladder DATE OF EXAM: 06/24/2022 COMPARISON: NONE Exam done portable CLINICAL HISTORY: right hydronephrosis on previous CT. EXAM MEASUREMENTS: Right Kidney: 11.7 x 5.1 x 4.7 cm Left Kidney: 10.9 x 4.8 x 4.4 cm Right Kidney: hydronephrosis, 1.6cm cyst superior pole Left Kidney: wnl Bladder: wnl Bilateral Jets seen: right jet not seen, left jet seen 9.1 x 7.1 x 6.9cm hypoechoic area left adnexa, considered pelvic ultrasound for additional evaluati on. IMPRESSION: 1. Right hydronephrosis. 2. Right renal cyst. 3. Hypoechoic area within the left adnexa, pelvic ultrasound recommended for additional workup.
--- NOTE | 2022-06-24 12:21 | CA ---
Transthoracic Echo Report Name: Nan Blackmon Age: 76 Gender: F : 1945 Exam Date: 06/24/2022 08:31 Exam Location: [facility] Ht (in): 64 Wt (lb): 134 Ordering Physician: Denice Trent Attending/Referring Phys: Shot Man Ne Coughlin, MIGUELITO Procedure CPT: Indications: pericardial effusion Cardiac Hx: Technical Quality: Good Contrast 1: Total Dose (mL): Contrast 2: Total Dose (mL): MEASUREMENTS (Male / Female) Normal Values 2D ECHO LV Diastolic Diameter PLAX 4.7 cm 4.2 - 5.9 / 3.9 - 5.3 cm LV Systolic Diameter PLAX 3.1 cm IVS Diastolic Thickness 0.9 cm 0.6 - 1.0 / 0.6 - 0.9 cm LVPW Diastolic Thickness 1.5 cm 0.6 - 1.0 / 0.6 - 0.9 cm LV Relative Wall Thickness 0.5 RV Internal Dim ED PLAX 3.3 cm LA Systolic Diameter LX 2.9 cm 3.0 - 4.0 / 2.7 - 3.8 cm M-MODE Aortic Root Diameter MM 3.3 cm LA Systolic Diameter MM 3.7 cm LA Ao Ratio MM 1.1 AV Cusp Separation MM 1.6 cm DOPPLER MV Area PHT 3.7 cm??? Mitral E Point Velocity 85.7 cm/s Mitral A Point Velocity 95.4 cm/s Mitral E to A Ratio 0.9 MV Deceleration Time 204.2 ms MV E' Velocity 6.4 cm/s Mitral E to MV E' Ratio 13.4 TR Peak Velocity 250.1 cm/s TR Peak Gradient 25.0 mmHg Right Ventricular Systolic Press 29.6 mmHg FINDINGS Left Ventricle Left ventricular ejection fraction is estimated at 50-55 %. Inferior basal hypokinesis. Right Ventricle Normal right ventricular size and function. Right Atrium Normal right atrial size. Left Atrium Normal left atrial size. Mitral Valve Structurally normal mitral valve. Mild mitral regurgitation. Aortic Valve Trileaflet aortic valve. Tricuspid Valve Structurally normal tricuspid valve. Pulmonic Valve Structurally normal pulmonic valve. Pericardium [id number] Pericardial Effusion.no signs of pericardial constriction. Aorta Normal size aortic root and proximal ascending aorta. CONCLUSIONS [id number] pericardial effusion Circumferential Normal LV size and systolic function Previewed by: Dr. Jorge Brown MD (Electronically Signed) Final Date: 24 June 2022 12:20
[2022-06-24 12:48] LABS: Calcium 8.9 mg/dL (8.4-10.2); Potassium 4.3 mmol/L (3.5-5.1)
--- NOTE | 2022-06-24 13:08 | P.CRDCN ---
History of Present Illness History of present illness: HISTORY OF PRESENTING ILLNESS This is a pleasant 76-year-old female past medical history significant for hypertension, dyslipidemia, hypothyroidism, benign brain tumor. She does not follow with a mgmt analyst. We have been asked to see in consultation for possible pericardial effusion. Patient was sent to the emergency department via primary care provider secondary to abnormal computed tomography scan and also patient with symptoms of hematuria. Patient states that she was having he maturia outpatient and CT of her abdomen and pelvis was completed. Apparently the result stated that patient appeared pericardial effusion and was sent to the emergency department. Patient seen and examined at bedside, she denies any chest pain, shortness of breath, palpitations, lightheadedness, dizziness, symptoms of orthopnea or PND. She has no complaints. Her vital signs are stable. She is lying flat in bed comfortably. DIAGNOSTICS * EKG reveals sinus bradycardia, heart rate 51, T wave inversion in lead III. no ST-T wave abnormalities to suggest ischemia * Echocardiogram revealed EF of 5055 %, mild to moderate pericardial effusion, no signs of pericardial constriction. * Chest xray mild hyperinflation, trace pleural effusion. Focal nodularity periphery of the left upper to mid lung. * Laboratory reviewed, troponin negative, proBNP 329, sodium 133, potassium 4.3, BUN 13, syncope and 0.8 * Current home cardiac medications include hydrochlorothiazide/spironolactone 2525 milligrams twice a day, carvedilol 12.5 mg twice a day, atorvastatin 10 mg nightly REVIEW OF SYSTEMS At the time of my exam: CONSTITUTIONAL: Denies fever or chills. CARDIOVASCULAR: Denies chest pain, shortness of breath, orthopnea, PND or palpitations. RESPIRATORY: Denies cough. GASTROINTESTINAL: Denies abdominal pain, diarrhea, constipation, nausea or vomiting. MUSCULOSKELETAL: Denies myalgias. NEUROLOGIC: Denies numbness, tingling, headacbe or weakness. ENDOCRINE: Denies fatigue, weight change, polydipsia or polyurina. GENITOURINARY: Denies burning, hematuria or urgency with micturation. HEMATOLOGIC: Denies history of anemia or bleeding. PHYSICAL EXAMINATION Blood pressure 113/64, heart rate 60, afebrile, saturations 100% on room air CONSTITUTIONAL: No apparent distress. HEENT: Head is normocephalic. Pupils are equal, round. Sclerae anicteric. Mucous membranes of the mouth are moist. No JVD. No carotid bruit. CHEST EXAMINATION: Lungs are clear to auscultation. No chest wall tenderness is noted on palpation or with deep breathing. HEART EXAMINATION: Regular rate and rhythm. S1, S2 heard. No murmurs, gallops or rub. ABDOMEN: Soft, nontender. Positive bowel sounds. EXTREMITIES: 2+ peripheral pulses, no lower extremity edema and no calf tenderness. NEUROLOGIC EXAMINATION: Patient is awake, alert and oriented x3. ASSESSMENT Mild to moderate pericardial effusion, no evidence of cardiac tamponade Right hydronephrosis History of hypertension Dyslipidemia Hypothyroidism History of brain tumor, per patient benign PLAN No further changes from a cardiology perspective. Echocardiogram revealed Mild to moderate pericardial effusion with no evidence of cardiac tamponade. Patient is asymptomatic, hemodynamically stable. Rest of management per primary. Nurse practitioner note has been reviewed by physician. Signing provider agrees with the documented findings, assessment, and plan of care. Past Medical History Past Medical History: Hypertension, Thyroid Disorder Additional Past Medical History / Comment(s): Interstitial cystitis,Intraparenchymal cyst,brain tumor,high cholesterol,complex partial seizures,hemmerroids. 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 OSTEOPOROSIS. History of Any Multi-Drug Resistant Organisms: None Reported Past Surgical History: Hysterectomy, Tonsillectomy Additional Past Surgical History / Comment(s): CLARISSA/BSO in 1984. Right breast biopsy. Cataract r eye implant,L eye implant. Colonoscopy 2019(multiple in past, next after 5yrs). Past Anesthesia/Blood Transfusion Reactions: No Reported Reaction Past Psychological History: No Psychological Hx Reported Smoking Status: Never smoker Past Alcohol Use History: None Reported Past Drug Use History: None Reported - Past Family History Father Family Medical History: Cancer Additional Family Medical History / Comment(s): Colon cancer. Paternal grandfather and grandmother both had colon cancer. Mother Family Medical History: Hypertension Additional Family Medical History / Comment(s): Dementia Sister(s) Family Medical History: Diabetes Mellitus Medications and Allergies Home Medications Medication Instructions Recorded Confirmed Type Atorvastatin [Lipitor] 10 mg PO W/SUPPER 08/07/18 06/23/22 History Ubidecarenone [Co Q-10] 200 mg PO W/SUPPER 08/07/18 06/23/22 History lamoTRIgine [LaMICtal] 150 mg PO BID 09/15/20 06/23/22 History L.acidoph,Paracasei, B.lactis 1 cap PO W/SUPPER 11/03/20 06/23/22 History [Probiotic] Biotin 2,000 Mcg 2,000 mcg PO DAILY 06/23/22 06/23/22 History Calcium Carbonate [Calcium] 1,200 mg PO DAILY 06/23/22 06/23/22 History Cholecalciferol [Vitamin D3 (25 25 mcg PO W/SUPPER 06/23/22 06/23/22 History Mcg = 1000 Iu)] Levothyroxine Sodium [Synthroid] 50 mcg PO DAILY 06/23/22 06/23/22 History Multivitamin (With No Iodine) 1 tab PO W/SUPPER 06/23/22 06/23/22 History Pantoprazole [Protonix] 40 mg PO AC-BRKFST 06/23/22 06/23/22 History Spironolactone 25 mg PO BID 06/23/22 06/23/22 History carvediloL [Coreg] 12.5 mg PO BID 06/23/22 06/23/22 History cloBAZam 20 mg PO BID 06/23/22 06/23/22 History traZODone HCL [Desyrel] 100 mg PO HS 06/23/22 06/23/22 History Allergies Allergy/AdvReac Type Severity Reaction Status Date / Time iodine AdvReac Intermediate Nausea & Verified 06/23/22 20:48 Vomiting orphenadrine [From Norflex] AdvReac Intermediate Nausea Verified 06/23/22 20:48 phenobarbital AdvReac Intermediate Nausea Verified 06/23/22 20:48 propranolol [From Inderal LA] AdvReac Intermediate Nausea Verified 06/23/22 20:48 sulfabenzamide AdvReac Intermediate Nausea Verified 06/23/22 20:48 erythromycin base AdvReac Nausea Verified 06/23/22 20:48 Milk Containing Products AdvReac Diarrhea Verified 06/23/22 20:48 [Dairy] ofloxacin [From Floxin] AdvReac Nausea Verified 06/23/22 20:48 shellfish derived [Shellfish] AdvReac Rash/Hives Verified 06/23/22 20:48 Sulfa (Sulfonamide AdvReac Nausea & Verified 06/23/22 20:48 Antibiotics) Vomiting terfenadine [From Seldane] AdvReac Nausea Verified 06/23/22 20:48 Physical Exam Vitals: Vital Signs Temp Pulse Pulse Resp BP BP Pulse Ox 06/24/22 08:00 98.1 F 57 L 17 143/73 97 06/24/22 04:00 97.8 F 53 L 16 117/56 96 06/24/22 00:00 98.1 F 60 18 165/76 97 06/23/22 22:23 98.1 F 58 L 16 171/82 99 06/23/22 21:11 97.9 F 62 18 152/72 99 06/23/22 14:45 97.3 F L 54 L 127/74 100 06/23/22 12:27 98.2 F 60 20 118/68 99 Intake and Output 06/23/22 06/24/22 06/24/22 22:59 06:59 14:59 Intake Total 240 180 Balance 240 180 Intake: Oral 240 180 Other: Voiding Method Toilet # Voids 1 Weight 51.256 kg Results 06/23/22 14:43 06/24/22 12:09 Cardiac Enzymes 06/23/22 06/23/22 Range/Units 14:43 14:43 AST 28 (14-36) U/L Troponin I <0.012 (0.000-0.034) ng/mL CBC 06/23/22 Range/Units 14:43 WBC 3.5 L (3.8-10.6) k/uL RBC 3.35 L (3.80-5.40) m/uL Hgb 11.6 (11.4-16.0) gm/dL Hct 34.5 (34.0-46.0) % Plt Count 190 (150-450) k/uL Comprehensive Metabolic Panel 06/23/22 Range/Units 14:43 Sodium 139 (137-145) mmol/L Potassium 4.4 (3.5-5.1) mmol/L Chloride 100 (98-107) mmol/L Carbon Dioxide 31 H (22-30) mmol/L BUN 16 (7-17) mg/dL Creatinine 0.83 (0.52-1.04) mg/dL Glucose 83 (74-99) mg/dL Calcium 9.3 (8.4-10.2) mg/dL AST 28 (14-36) U/L ALT 22 (4-34) U/L Alkaline Phosphatase 60 (38-126) U/L Total Protein 6.4 (6.3-8.2) g/dL Albumin 4.3 (3.5-5.0) g/dL Current Medications Generic Name Dose Route Start Last Admin Trade Name Freq PRN Reason Stop Dose Admin Atorvastatin Calcium 10 mg 06/23/22 21:00 06/23/22 20:54 Atorvastatin 10 Mg Tab PO 10 mg HS SISSY Administration Carvedilol 12.5 mg 06/24/22 07:30 06/24/22 06:15 Carvedilol 6.25 Mg Tab PO 12.5 mg AC-BID SISSY Administration Cholecalciferol 50 mcg 06/23/22 20:15 06/24/22 10:07 Cholecalciferol 25 Mcg (1000 Iu) Tablet PO 50 mcg DAILY SISYS Administration HCTZ/Spironolactone 1 each 06/23/22 21:00 06/24/22 10:09 Spironolactone-Hctz 25-25mg 1 Each Tab PO 1 each BID SISSY Administration Sodium Chloride 1,000 mls @ 50 mls/hr 06/23/22 20:15 06/23/22 20:57 Saline 0.9% IV 50 mls/hr .Q20H SISSY Administration Lactobacillus Acidoph/Bulgaricus 1 each 06/24/22 09:00 06/24/22 10:10 Lactobacillus Acidoph & Bulgar 1 Each Packet PO 1 each DAILY SISSY Administration Lamotrigine 150 mg 06/23/22 21:00 06/24/22 10:08 Lamotrigine 100 Mg Tab PO 150 mg BID SISSY Administration Levothyroxine Sodium 50 mcg 06/24/22 06:30 06/24/22 06:15 Levothyroxine 50 Mcg Tab PO 50 mcg 0630 SISSY Administration Multivitamins 1 each 06/24/22 09:00 06/24/22 10:08 Multivitamins, Thera 1 Each Tab PO 1 each DAILY SISSY Administration Non Formulary Drug ( 2,000 mcg 06/23/22 20:15 06/24/22 10:06 Biotin [Biotin PO 2,000 mcg Disolve] 1,000 Mcg DAILY SISSY Administration Tab.Rapdis) Non Formulary Drug ( 20 mg 06/23/22 21:00 06/24/22 10:06 Clobazam [Onfi] 20 PO 20 mg Mg Tablet) C-Iv. BID SISSY Administration Non-Formulary Medication 200 mg 06/24/22 09:00 06/24/22 10:14 Ubidecarenone [Co Q-10] PO Not Given DAILY SISSY Pantoprazole Sodium 40 mg 06/24/22 07:30 06/24/22 06:14 Pantoprazole 40 Mg Tablet PO 40 mg AC-BRKFST SISSY Administration Trazodone HCl 100 mg 06/23/22 21:30 06/23/22 21:38 Trazodone Hcl 100 Mg Tab PO 100 mg HS SISSY Administration Intake and Output 06/23/22 06/24/22 06/24/22 22:59 06:59 14:59 Intake Total 240 180 Balance 240 180 Intake: Oral 240 180 Other: Voiding Method Toilet # Voids 1 Weight 51.256 kg 06/23/22 14:43 06/23/22 14:43
[2022-06-24] MEDS ORDERED: LACTULOSE 20 GM/30 ML CUP PO ONE (15:32)
--- NOTE | 2022-06-24 15:35 | P.HPIM ---
History of Present Illness H&P Date: 06/24/22 This is a 76 year old female with medical history of hypertension, hypothyroidism, benign brain tumor, complex partial seizures, never smoker, high cholesterol. She presents to the emergency center sent in from Dr Leach office for further evaluation of pericardial effusion. [place] for evaluation for blood in the urine. States they did pelvic exam. Blood in the urine has resolved. During that time she also had right sided abdominal pain that radiated down. She had abdominal CT completed during that hospital stay and was found to have right sided hydronephrosis and also incidental finding of cardiomegaly and pericardial effusion. States they also found retained fecal material and colonoscopy was performed which was negative work up. She wanted to come home and see PCP, and was discharged. She was not evaluated by urology. No fever or chills, no chest pain, no shortness of breath, denies dizziness or lightheadedness. Denies nausea or vomiting. States she has not had a normal BM since october and only passes bits and pieces at a time. Patient has never followed with cardiology prior. She is admitted to the hospital for pericardial effusion, cardiology has been consulted. Echocardiogram shows mild to moderate pericardial effusion with normal LV size and function. Labs on admission showing white count 3.5, hgb 11.6, sodium 139, potassium 4.4, BUN 16, creatinine 0.83, liver enzymes within normal limits. Troponin negative, proBNP 329. Urinalysis showing negative blood, there is small leukocyte esterase not sugestive of UTI. REVIEW OF SYSTEMS: CONSTITUTIONAL: No fever, no malaise, no fatigue. HEENT: No recent visual problems or hearing problems. Denied any sore throat. CARDIOVASCULAR: No chest pain, orthopnea, PND, no palpitations, no syncope. PULMONARY: No shortness of breath, no cough, no hemoptysis. GASTROINTESTINAL: No diarrhea, no nausea, no vomiting, no abdominal pain. NEUROLOGICAL: No headaches, no weakness, no numbness. HEMATOLOGICAL: Denies any bleeding or petechiae. GENITOURINARY: Denies any burning micturition, frequency, or urgency. MUSCULOSKELETAL/RHEUMATOLOGICAL: Denies any joint pain, swelling, or any muscle pain. ENDOCRINE: Denies any polyuria or polydipsia. The rest of the 14-point review of systems is negative. PHYSICAL EXAMINATION: GENERAL: The patient is alert and oriented x3, not in any acute distress. Well developed, well nourished. HEENT: Pupils are round and equally reacting to light. EOMI. No scleral icterus. No conjunctival pallor. Normocephalic, atraumatic. No pharyngeal erythema. No thyromegaly. CARDIOVASCULAR: S1 and S2 present. No murmurs, rubs, or gallops. PULMONARY: Chest is clear to auscultation, no wheezing or crackles. ABDOMEN: Soft, nontender, nondistended, normoactive bowel sounds. No palpable organomegaly. MUSCULOSKELETAL: No joint swelling or deformity. EXTREMITIES: No cyanosis, clubbing, or pedal edema. NEUROLOGICAL: Gross neurological examination did not reveal any focal deficits. SKIN: No rashes. Assessment and Plan Assessment Mild to moderate pericardial effusion, no evidence of cardiac tamponade Right hydronephrosis with normal kidney function Recent reports of hematuria currently resolved Hyponatremia, hypvolemic with poor oral intake History of hypertension currently normotensive Benign brain tumor follows at [facility] Dyslipidemia Hypothyroidism Seizure disorder stable on medications Chronic constipation Status post hysterectomy with hypoechoic area left adnexa found on ultrasoun GI Prophylaxis DVT Prophylaxis Full Code Plan Hold Aldactazide Beta tl increased Pending further recommendations from cardiology Bowel regimen Review renal ultrasound Resume all other home medications The impression and plan of care has been dictated by Sue Cotto Nurse Practitioner as directed. Dr. Danny MD I have performed a history and physical examination and medical decision making of this patient, discussed the same with the dictator, and agree with the dictators assessment and plan as written, documented as a scribe. Based on total visit time, I have performed more than 50% of this visit. Past Medical History Past Medical History: Hypertension, Thyroid Disorder Additional Past Medical History / Comment(s): Interstitial cystitis,Intraparenchymal cyst,brain tumor,high cholesterol,complex partial seizures,hemmerroids. 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 OSTEOPOROSIS. History of Any Multi-Drug Resistant Organisms: None Reported Past Surgical History: Hysterectomy, Tonsillectomy Additional Past Surgical History / Comment(s): CLARISSA/BSO in 1984. Right breast biopsy. Cataract r eye implant,L eye implant. Colonoscopy 2019(multiple in past, next after 5yrs). Past Anesthesia/Blood Transfusion Reactions: No Reported Reaction Past Psychological History: No Psychological Hx Reported Smoking Status: Never smoker Past Alcohol Use History: None Reported Past Drug Use History: None Reported - Past Family History Father Family Medical History: Cancer Additional Family Medical History / Comment(s): Colon cancer. Paternal grandfather and grandmother both had colon cancer. Mother Family Medical History: Hypertension Additional Family Medical History / Comment(s): Dementia Sister(s) Family Medical History: Diabetes Mellitus Medications and Allergies Home Medications Medication Instructions Recorded Confirmed Type Atorvastatin [Lipitor] 10 mg PO W/SUPPER 08/07/18 06/23/22 History Ubidecarenone [Co Q-10] 200 mg PO W/SUPPER 08/07/18 06/23/22 History lamoTRIgine [LaMICtal] 150 mg PO BID 09/15/20 06/23/22 History L.acidoph,Paracasei, B.lactis 1 cap PO W/SUPPER 11/03/20 06/23/22 History [Probiotic] Biotin 2,000 Mcg 2,000 mcg PO DAILY 06/23/22 06/23/22 History Calcium Carbonate [Calcium] 1,200 mg PO DAILY 06/23/22 06/23/22 History Cholecalciferol [Vitamin D3 (25 25 mcg PO W/SUPPER 06/23/22 06/23/22 History Mcg = 1000 Iu)] Levothyroxine Sodium [Synthroid] 50 mcg PO DAILY 06/23/22 06/23/22 History Multivitamin (With No Iodine) 1 tab PO W/SUPPER 06/23/22 06/23/22 History Pantoprazole [Protonix] 40 mg PO [id number] 06/23/22 06/23/22 History Spironolactone 25 mg PO BID 06/23/22 06/23/22 History carvediloL [Coreg] 12.5 mg PO BID 06/23/22 06/23/22 History cloBAZam 20 mg PO BID 06/23/22 06/23/22 History traZODone HCL [Desyrel] 100 mg PO HS 06/23/22 06/23/22 History Allergies Allergy/AdvReac Type Severity Reaction Status Date / Time iodine AdvReac Intermediate Nausea & Verified 06/23/22 20:48 Vomiting orphenadrine [From Norflex] AdvReac Intermediate Nausea Verified 06/23/22 20:48 phenobarbital AdvReac Intermediate Nausea Verified 06/23/22 20:48 propranolol [From Inderal LA] AdvReac Intermediate Nausea Verified 06/23/22 20:48 sulfabenzamide AdvReac Intermediate Nausea Verified 06/23/22 20:48 erythromycin base AdvReac Nausea Verified 06/23/22 20:48 Milk Containing Products AdvReac Diarrhea Verified 06/23/22 20:48 [Dairy] ofloxacin [From Floxin] AdvReac Nausea Verified 06/23/22 20:48 shellfish derived [Shellfish] AdvReac Rash/Hives Verified 06/23/22 20:48 Sulfa (Sulfonamide AdvReac Nausea & Verified 06/23/22 20:48 Antibiotics) Vomiting terfenadine [From Seldane] AdvReac Nausea Verified 06/23/22 20:48 Physical Exam Vitals: Vital Signs Temp Pulse Pulse Resp BP BP Pulse Ox 06/24/22 08:00 98.1 F 57 L 17 143/73 97 06/24/22 04:00 97.8 F 53 L 16 117/56 96 06/24/22 00:00 98.1 F 60 18 165/76 97 06/23/22 22:23 98.1 F 58 L 16 171/82 99 06/23/22 21:11 97.9 F 62 18 152/72 99 06/23/22 14:45 97.3 F L 54 L 127/74 100 06/23/22 12:27 98.2 F 60 20 118/68 99 Intake and Output 06/23/22 06/24/22 06/24/22 22:59 06:59 14:59 Intake Total 240 Balance 240 Intake: Oral 240 Other: Voiding Method Toilet # Voids 1 Weight 51.256 kg Results CBC & Chem 7: 06/23/22 14:43 06/24/22 12:09 Labs: Abnormal Lab Results - Last 24 Hours (Table) 06/23/22 06/23/22 06/23/22 Range/Units 14:43 14:43 14:43 WBC 3.5 L (3.8-10.6) k/uL RBC 3.35 L (3.80-5.40) m/uL MCV 103.1 H (80.0-100.0) fL Carbon Dioxide 31 H (22-30) mmol/L Plasma Lactic Acid Tyrell (0.7-2.0) mmol/L Amylase 124 H (30-110) U/L Ur Leukocyte Esterase Small H (Negative) 06/23/22 Range/Units 14:43 WBC (3.8-10.6) k/uL RBC (3.80-5.40) m/uL MCV (80.0-100.0) fL Carbon Dioxide (22-30) mmol/L Plasma Lactic Acid Tyrell <0.5 L (0.7-2.0) mmol/L Amylase (30-110) U/L Ur Leukocyte Esterase (Negative) Thrombosis Risk Factor Assmnt - Choose All That Apply Each Risk Factor Represents 3 Points: Age 75 years or older Thrombosis Risk Factor Assessment Total Risk Factor Score: 3 Thrombosis Risk Factor Assessment Level: Moderate Risk Assessment and Plan Time with Patient: Greater than 30
[2022-06-24] MEDS: SODIUM CHLORIDE 0.9% 1,000 ML IV SCH (17:55)
[2022-06-24] MEDS ORDERED: ACETAMINOPHEN TAB 325 MG TAB PO PRN (18:29)
[2022-06-24] MEDS ORDERED: traMADol 50 MG TAB PO PRN (18:30)
--- NOTE | 2022-06-24 19:20 | XR ---
EXAMINATION TYPE: XR abdomen 2V DATE OF EXAM: 06/24/2022 COMPARISON: NONE HISTORY: Abdominal pain TECHNIQUE: 2 views FINDINGS: Supine and upright views were obtained and show no sign of intestinal obstruction or pneumo peritoneum. Fecal pattern is normal. No evidence of a mass. Lung bases are clear of consolidation. No calcifications seen over the kidneys. IMPRESSION: Nonacute abdomen.
[2022-06-24] MEDS: ONFI 20 MG PO SCH (20:47)
[2022-06-24] MEDS: HEPARIN SODIUM,PORCINE/PF 5,000 UNIT/0.5 ML SYRINGE SQ SCH (20:47)
[2022-06-24] MEDS: ATORVASTATIN 10 MG TAB PO SCH (20:47)
[2022-06-24] MEDS: traZODone HCL 100 MG TAB PO SCH (20:48)
[2022-06-25] MEDS: PANTOPRAZOLE 40 MG TABLET PO SCH (06:29)
[2022-06-25] MEDS: carvediloL 6.25 MG TAB PO SCH ×2 (06:29→16:52)
[2022-06-25] MEDS: LEVOTHYROXINE 50 MCG TAB PO SCH (06:29)
--- NOTE | 2022-06-25 07:18 | P.PN ---
Subjective Progress Note Date: 06/25/22 Principal diagnosis: Pericardial effusion Patient is a pleasant 76-year-old female patient who was admitted to the hospital with pericardial effusion and also hematuria. We consulted to see the patient because a computed tomography scan showed pericardial effusion. Further investigation including an echocardiogram showed [id number] pericardial effusion with no tamponade physiology noted. The patient was seen this morning. She remains asymptomatic from a cardiovascu lar standpoint of view. Hemodynamically is having marginally low blood pressure but about 90 mm systolic. I'm going to decrease the dose of carvedilol. She does have thyroid disease which could be responsible for the pericardial effusion. Otherwise she reports no pain in the chest and no shortness of breath and no dizziness or lightheadedness and no feeling of heart racing or fluttering or presyncope or syncope. Objective - Vital Signs Vital signs: Vital Signs Temp 98 F 06/25/22 03:59 Pulse 62 06/25/22 03:59 Resp 16 06/25/22 03:59 BP 100/61 06/25/22 03:59 Pulse Ox 97 06/25/22 03:59 FiO2 Intake & Output 06/24/22 06/25/22 06/25/22 18:59 06:59 18:59 Intake Total 540 240 Balance 540 240 Intake: Oral 540 240 Other: Voiding Method Toilet Toilet # Voids 2 # Bowel Movements 1 - Constitutional General appearance: Present: no acute distress - Respiratory Respiratory: bilateral: CTA - Cardiovascular Rhythm: regular - Labs CBC & Chem 7: 06/23/22 14:43 06/24/22 12:09 Labs: Abnormal Lab Results - Last 24 Hours (Table) 06/24/22 Range/Units 12:09 Sodium 133 L (137-145) mmol/L Chloride 97 L (98-107) mmol/L Assessment and Plan Assessment: Assessment [id number] pericardial effusion with no tamponade physiology Thyroid disease which could be responsible for the pericardial effusion Margin the low blood pressure Hematuria Plan Decrease the dose of carvedilol Monitor the pericardial effusion probably as an out
[2022-06-25 07:33] LABS: Calcium 8.6 mg/dL (8.4-10.2); Potassium 3.6 mmol/L (3.5-5.1)
[2022-06-25] MEDS: SODIUM CHLORIDE 0.9% 1,000 ML IV SCH (08:25)
[2022-06-25] MEDS: HEPARIN SODIUM,PORCINE/PF 5,000 UNIT/0.5 ML SYRINGE SQ SCH ×2 (08:25→20:27)
[2022-06-25] MEDS: lamoTRIgine 100 MG TAB PO SCH ×2 (08:25→20:20)
[2022-06-25] MEDS: BIOTIN 1000 MCG PO SCH (08:25)
[2022-06-25] MEDS: CHOLECALCIFEROL 25 MCG (1000 IU) TABLET PO SCH (08:26)
[2022-06-25] MEDS: LACTOBACILLUS ACIDOPH & BULGAR 1 EACH PACKET PO SCH (08:26)
[2022-06-25] MEDS: NON FORMULARY DRUG (Ubidecarenone [Co Q-10] 100 MG Capsule) PO SCH (08:27)
[2022-06-25] MEDS ORDERED: NA PHOS,M-B/NA PHOS,DI-BA 133 ML ENEMA RECTAL ONE (09:59)
[2022-06-25] MEDS: ONFI 20 MG PO SCH ×2 (10:29→20:20)
--- NOTE | 2022-06-25 12:31 | P.PN ---
Subjective Progress Note Date: 06/25/22 This is a 76 year old female with medical history of hypertension, hypothyroidism, benign brain tumor, complex partial seizures, never smoker, high cholesterol. She presents to the emergency center sent in from Dr Leach office for further evaluation of pericardial eff[place]. [place] evaluation for blood in the urine. States they did pelvic exam. Blood in the urine has resolved. During that time she also had right sided abdominal pain that radiated down. She had abdominal CT completed during that hospital stay and was found to have right sided hydronephrosis and also incidental finding of cardiomegaly and pericardial effusion. States they also found retained fecal material and colonoscopy was performed which was negative work up. She wanted to come home and see PCP, and was discharged. She was not evaluated by urology. No fever or chills, no chest pain, no shortness of breath, denies dizziness or lightheadedness. Denies nausea or vomiting. States she has not had a normal BM since october and only passes bits and pieces at a time. Patient has never followed with cardiology prior. She is admitted to the hospital for pericardial effusion, cardiology has been consulted. Echocardiogram shows mild to moderate pericardial effusion with normal LV size and function. Labs on admission showing white count 3.5, hgb 11.6, sodium 139, potassium 4.4, BUN 16, creatinine 0.83, liver enzymes within normal limits. Troponin negative, proBNP 329. Urinalysis showing negative blood, there is small leukocyte esterase not sugestive of UTI. 06/25/2022 Patient is monitored today on step down unit. She had echocardiogram done showing mild to moderate pericardial effusion. Follow up with cardiology outpatient. TSH was checked at 2.650. She had a dose of lactulose last night with no BM. Abdominal xray showing large stool burden. Fleet enema will be given today. She did complain of some crampy left lower abdominal pain this morning and she does have some distention and there appears to be stool burden there. If no BM with fleet enema okay to give a soap suds enema. Her sodium is on the lower side at 130 and also blood pressure marginal, her coreg has been decreased by cardiology. Fluids were increased to 0.9 normal saline at 75 mls/hr. PHYSICAL EXAMINATION: GENERAL: The patient is alert and oriented x3, not in any acute distress. Well developed, well nourished. HEENT: Pupils are round and equally reacting to light. EOMI. No scleral icterus. No conjunctival pallor. Normocephalic, atraumatic. No pharyngeal erythema. No thyromegaly. CARDIOVASCULAR: S1 and S2 present. No murmurs, rubs, or gallops. PULMONARY: Chest is clear to auscultation, no wheezing or crackles. ABDOMEN: Soft, nontender, nondistended, normoactive bowel sounds. No palpable organomegaly. MUSCULOSKELETAL: No joint swelling or deformity. EXTREMITIES: No cyanosis, clubbing, or pedal edema. NEUROLOGICAL: Gross neurological examination did not reveal any focal deficits. SKIN: No rashes. Assessment and Plan Assessment Mild to moderate pericardial effusion, no evidence of cardiac tamponade Right hydronephrosis with normal kidney function Recent reports of hematuria currently resolved Hyponatremia, hypvolemic with poor oral intake History of hypertension currently normotensive Benign brain tumor follows at [facility] Dyslipidemia Hypothyroidism Seizure disorder stable on medications Chronic constipation Status post hysterectomy and bilateral salipingoophrectomy with hypoechoic area left adnexa found on ultrasound GI Prophylaxis DVT Prophylaxis Full Code Plan Hold Aldactazide Beta tl decreased Bowel regimen Patient may be discharged later today if she has bowel movement. Follow up with primary care, cardiology, and food equipment service technician outpatient The impression and plan of care has been dictated by Sue Cotto, Nurse Practitioner as directed. Dr. Danny MD I have performed a history and physical examination and medical decision making of this patient, discussed the same with the dictator, and agree with the dictators assessment and plan as written, documented as a scribe. Based on total visit time, I have performed more than 50% of this visit. Objective - Vital Signs Vital signs: Vital Signs Temp 97.6 F 06/25/22 08:00 Pulse 66 06/25/22 08:00 Resp 18 06/25/22 08:00 BP 95/59 06/25/22 08:00 Pulse Ox 97 06/25/22 08:00 FiO2 Intake & Output 06/24/22 06/25/22 06/25/22 18:59 06:59 18:59 Intake Total 540 240 790 Balance 540 240 790 Intake: Intake, IV Titration 150 Amount Sodium Chloride 0.9% 1, 150 000 ml @ 75 mls/hr IV . [id number] [facility] Rx#:[id number] Oral 540 240 640 Other: Voiding Method Toilet Toilet Toilet # Voids 2 1 # Bowel Movements 1 - Labs CBC & Chem 7: 06/23/22 14:43 06/25/22 05:55 Labs: Abnormal Lab Results - Last 24 Hours (Table) 06/24/22 06/25/22 Range/Units 12:09 05:55 Sodium 133 L 130 L (137-145) mmol/L Chloride 97 L 94 L (98-107) mmol/L
[2022-06-25] MEDS ORDERED: LACTULOSE 20 GM/30 ML CUP PO PRN (15:42)
[2022-06-25] MEDS: traZODone HCL 100 MG TAB PO SCH (20:20)
[2022-06-25] MEDS: ATORVASTATIN 10 MG TAB PO SCH (20:20)
[2022-06-26 04:29] VITALS: RESP 16
[2022-06-26] MEDS: SODIUM CHLORIDE 0.9% 1,000 ML IV SCH ×2 (05:17→11:40)
[2022-06-26] MEDS: LEVOTHYROXINE 50 MCG TAB PO SCH (05:19)
[2022-06-26] MEDS: PANTOPRAZOLE 40 MG TABLET PO SCH (05:19)
[2022-06-26] MEDS: carvediloL 6.25 MG TAB PO SCH ×2 (05:19→17:17)
--- NOTE | 2022-06-26 07:10 | P.PN ---
Subjective Progress Note Date: 06/26/22 Principal diagnosis: Pericardial effusion Patient is a pleasant 76-year-old female patient who was admitted to the hospital with pericardial effusion and also hematuria. We consulted to see the patient because a computed tomography scan showed pericardial effusion. Further investigation including an echocardiogram showed [id number] pericardial effusion with no tamponade physiology noted. June [id number] The patient was seen this morning. She remains asymptomatic from a cardiovascular standpoint of view. Hemodynamically is having marginally low blood pressure but about 90 mm systolic. I'm going to decrease the dose of carvedilol. She does have thyroid disease which could be responsible for the pericardial effusion. Otherwise she reports no pain in the chest and no shortness of breath and no dizziness or lightheadedness and no feeling of heart racing or fluttering or presyncope or syncope. June 262019 The patient was seen this morning. She is asymptomatic from the cardiovascular standpoint. She is hemodynamically stable. From a cardiovascular standpoint of view, patient can be discharged home. As an outpatient echocardiogram needs to be done to assess for any improvement in the pericardial effusion which is likely related to thyroid disease Objective - Vital Signs Vital signs: Vital Signs Temp 98.1 F 06/25/22 20:00 Pulse 60 06/26/22 04:00 Resp 16 06/26/22 04:00 BP 104/66 06/26/22 04:00 Pulse Ox 97 06/26/22 04:00 FiO2 Intake & Output 06/25/22 06/26/22 06/26/22 18:59 06:59 18:59 Intake Total 1330 1228 Output Total 3 Balance 1330 1225 Intake: Intake, IV Titration 450 750 Amount Sodium Chloride 0.9% 1, 450 750 000 ml @ 75 mls/hr IV . [id number] [facility] Rx#:[id number] Oral 880 478 Output: Urine 3 Other: Voiding Method Toilet Toilet # Voids 1 - Constitutional General appearance: Present: no acute distress - Respiratory Respiratory: bilateral: CTA - Cardiovascular Rhythm: regular Heart sounds: normal: S1, S2 - Labs CBC & Chem 7: 06/23/22 14:43 06/25/22 05:55 Labs: Abnormal Lab Results - Last 24 Hours (Table) 06/25/22 Range/Units 05:55 Sodium 130 L (137-145) mmol/L Chloride 94 L (98-107) mmol/L Assessment and Plan Assessment: Assessment [id number] pericardial effusion with no tamponade physiology Thyroid disease which could be responsible for the pericardial effusion Margin the low blood pressure Hematuria Plan Decrease the dose of carvedilol Monitor the pericardial effusion probably as an out The patient can be discharged home
[2022-06-26] MEDS: HEPARIN SODIUM,PORCINE/PF 5,000 UNIT/0.5 ML SYRINGE SQ SCH ×2 (09:04→21:23)
[2022-06-26] MEDS: lamoTRIgine 100 MG TAB PO SCH ×2 (09:05→21:23)
[2022-06-26] MEDS: CHOLECALCIFEROL 25 MCG (1000 IU) TABLET PO SCH (09:05)
[2022-06-26] MEDS: BIOTIN 1000 MCG PO SCH (09:05)
[2022-06-26] MEDS: LACTOBACILLUS ACIDOPH & BULGAR 1 EACH PACKET PO SCH (09:06)
[2022-06-26] MEDS: ONFI 20 MG PO SCH ×2 (09:18→21:35)
[2022-06-26] MEDS: NON FORMULARY DRUG (Ubidecarenone [Co Q-10] 100 MG Capsule) PO SCH (09:20)
[2022-06-26 09:45] LABS: Calcium 8.8 mg/dL (8.4-10.2); Potassium 4.1 mmol/L (3.5-5.1)
--- NOTE | 2022-06-26 11:10 | XR ---
EXAMINATION TYPE: XR abdomen 2V DATE OF EXAM: 06/26/2022 CLINICAL DATA: 76-year-old female with abdominal pain, [facility] COMPARISON: 06/24/2022 FINDINGS: Lung bases are clear. No evidence for free intraperitoneal air. Moderate stool within the pelvis. Gassy colon persists though diminishing from prior exam. No dilated small bowel loops identified. No differential air-fluid levels. Left-sided pelvic phlebolith. IMPRESSION: Persisting gassy colon though less so compared to prior exam. Overall nonobstructive bowel gas patter n. Moderate stool in the pelvis (probably in the cecum).
--- NOTE | 2022-06-26 13:22 | P.PN ---
Subjective Progress Note Date: 06/26/22 This is a 76 year old female with medical history of hypertension, hypothyroidism, benign brain tumor, complex partial seizures, never smoker, high cholesterol. She presents to the emergency center sent in from Dr Leach office for further evaluation of pericardial effusion. [place] hospital for evaluation for blood in the urine. States they did pelvic exam. Blood in the urine has resolved. During that time she also had right sided abdominal pain that radiated down. She had abdominal CT completed during that hospital stay and was found to have right sided hydronephrosis and also incidental finding of cardiomegaly and pericardial effusion. States they also found retained fecal material and colonoscopy was performed which was negative work up. She wanted to come home and see PCP, and was discharged. She was not evaluated by urology. No fever or chills, no chest pain, no shortness of breath, denies dizziness or lightheadedness. Denies nausea or vomiting. States she has not had a normal BM since october and only passes bits and pieces at a time. Patient has never followed with cardiology prior. She is admitted to the hospital for pericardial effusion, cardiology has been consulted. Echocardiogram shows mild to moderate pericardial effusion with normal LV size and function. Labs on admission showing white count 3.5, hgb 11.6, sodium 139, potassium 4.4, BUN 16, creatinine 0.83, liver enzymes within normal limits. Troponin negative, proBNP 329. Urinalysis showing negative blood, there is small leukocyte esterase not sugestive of UTI. 06/25/2022 Patient is monitored today on step down unit. She had echocardiogram done showing mild to moderate pericardial effusion. Follow up with cardiology outpatient. TSH was checked at 2.650. She had a dose of lactulose last night with no BM. Abdominal xray showing large stool burden. Fleet enema will be given today. She did complain of some crampy left lower abdominal pain this morning and she does have some distention and there appears to be stool burden there. If no BM with fleet enema okay to give a soap suds enema. Her sodium is on the lower side at 130 and also blood pressure marginal, her coreg has been decreased by cardiology. Fluids were increased to 0.9 normal saline at 75 mls/hr. 06/26/2022 Patient continues with complaints of right sided abdominal pain with radiation. She does have stool burden in the cecum and was given a fleet enema yesterday and will receive a soap suds enema today. Kidney function remains stable and she continues on 0.9 normal saline. Sodium has improved to 133. Patient will be evaluated by general surgery regarding for abdominal pain, colonic distention and constipation. Blood pressure 117/60. Stable for discharge from cardiology perspective. PHYSICAL EXAMINATION: GENERAL: The patient is alert and oriented x3, not in any acute distress. Well developed, well nourished. HEENT: Pupils are round and equally reacting to light. EOMI. No scleral icterus. No conjunctival pallor. Normocephalic, atraumatic. No pharyngeal erythema. No thyromegaly. CARDIOVASCULAR: S1 and S2 present. No murmurs, rubs, or gallops. PULMONARY: Chest is clear to auscultation, no wheezing or crackles. ABDOMEN: Soft, nontender, nondistended, normoactive bowel sounds. No palpable organomegaly. MUSCULOSKELETAL: No joint swelling or deformity. EXTREMITIES: No cyanosis, clubbing, or pedal edema. NEUROLOGICAL: Gross neurological examination did not reveal any focal deficits. SKIN: No rashes. Assessment and Plan Assessment Mild to moderate pericardial effusion, no evidence of cardiac tamponade Right hydronephrosis with normal kidney function Recent reports of hematuria currently resolved Hyponatremia, hypvolemic with poor oral intake improving with IV fluids History of hypertension currently normotensive Benign brain tumor follows at [facility] Dyslipidemia Hypothyroidism Seizure disorder stable on medications Chronic constipation Status post hysterectomy and bilateral salipingoophrectomy with hypoechoic area left adnexa found on ultrasound GI Prophylaxis DVT Prophylaxis Full Code Plan Hold Aldactazide Beta tl decreased Enema ordered General surgery consultation for further evaluation Follow up with primary care, cardiology, and reading aide outpatient The impression and plan of care has been dictated by Sue Cotto Nurse Practitioner as directed. Dr. Danny MD I have performed a history and physical examination and medical decision making of this patient, discussed the same with the dictator, and agree with the dictators assessment and plan as written, documented as a scribe. Based on total visit time, I have performed more than 50% of this visit. Objective - Vital Signs Vital signs: Vital Signs Temp 97.8 F 06/26/22 12:01 Pulse 64 06/26/22 12:01 Resp 16 06/26/22 12:01 BP 117/60 06/26/22 12:01 Pulse Ox 99 06/26/22 12:01 FiO2 Intake & Output 06/25/22 06/26/22 06/26/22 18:59 06:59 18:59 Intake Total 1330 1228 180 Output Total 3 Balance 1330 1225 180 Intake: Intake, IV Titration 450 750 Amount Sodium Chloride 0.9% 1, 450 750 000 ml @ 75 mls/hr IV . [id number] [facility] Rx#:[id number] Oral 880 478 180 Output: Urine 3 Other: Voiding Method Toilet Toilet Toilet # Voids 1 1 - Labs CBC & Chem 7: 06/23/22 14:43 06/26/22 09:12 Labs: Abnormal Lab Results - Last 24 Hours (Table) 06/26/22 Range/Units 09:12 Sodium 133 L (137-145) mmol/L Assessment and Plan Time with Patient: Less than 30
--- NOTE | 2022-06-26 13:56 | P.GSCN ---
History of Present Illness Consult date: 06/26/22 History of present illness: REASON FOR CONSULTATION: Colonic distention HISTORY OF PRESENT ILLNESS: The patient is a 76-year-old female with family history of colon cancer in her grandmother, both parents whose last colonoscopy was 2-3 weeks ago at outside facility. She reports 8-9 month history of change in bowel habits with severe constipation. Her last bowel movement was 3 weeks ago. She reports abdominal distention and lower crampy abdominal pain. She rep orts her colonoscopy was unremarkable per her provider. She denies any personal history of colon polyps. Due to severe constipation and colonic distention, Gen. surgery consulted. Patient reports passage of flatus. No blood in stools. She reports blood in her urine that occurred for 2 days in the past 2 weeks and had resolved on its own. PAST MEDICAL HISTORY: See list and reviewed PAST SURGICAL HISTORY: See list and reviewed MEDICATIONS: See list and reviewed ALLERGIES: See list and reviewed SOCIAL HISTORY: See list and reviewed FAMILY HISTORY: See list and reviewed REVIEW OF ORGAN SYSTEMS: CONSTITUTIONAL: No fevers or chills. No recent weight loss. EYES: Denies any trouble with vision. Wears glasses. HEENT: No difficulties with hearing. No nosebleeds. No difficulty swallowing. RESPIRATORY: Denies pneumonia. Denies any troubles with breathing or dyspnea on exertion. CARDIOVASCULAR: Has congestive heart failure and hypertensive heart disease. History of pericardial effusion. Has hyperlipidemia. GASTROINTESTINAL: Has change in bowel habit with severe constipation ongoing for 8-9 months. Last colonoscopy 2-3 weeks ago at outside facility. Has gastroesophageal reflux disease. GENITOURINARY: Had total abdominal hysterectomy. Has interstitial cystitis NEUROLOGICAL: Denies any numbness or tingling along the distal extremities. Has seizure disorder. Has brain tumor. MUSCULOSKELETAL: Denies any back pain, stiffness or joint arthritis. SKIN: No current skin cancer. No rash. PSYCHIATRIC: Denies current depression or suicidal thoughts. ENDOCRINE: Has hypothyroidism. Denies any blood sugar glucose intolerance. HEME/LYMPHATIC: Denies any lumps and bumps around the neck. No recent deep venous thrombosis. ALLERGY/IMMUNOLOGY: No immunoglobulin therapy. No immune deficiencies. BREAST: History of right breast biopsy PHYSICAL EXAM: VITALS: Reviewed CONSTITUTIONAL: Well developed and in no acute distress. EYES: Conjuctivae without sclera icterus. Extraocular movements grossly intact. HEAD, EARS, NOSE, THROAT: Moist buccal mucosa. Head is atraumatic, normocephalic. Hears conversational speech. No nasal drainage. NECK: Supple. No JV distention. No thyroidomegaly. RESPIRATORY: Non-labored respirations and equal bilateral excursions. No gross wheezes. CARDIOVASCULAR: Palpable 2+ radial pulses. ABDOMEN: Mild distention. Soft. No peritonitis. LYMPH: No neck lymphadenopathy. MUSCULOSKELETAL: Nail and fingers with good capillary refill. SKIN: Warm and well perfused with good skin turgor. NEUROLOGIC: Cranial nerves II through XII grossly intact. No focal or lateralizing signs. PSYCH: Appropriate affect. Alert and oriented to person, place and time. Displays appropriate insight. CLINCAL LABS: Reviewed. WBC low 3.5. Sodium low 133. Creatinine normal 0.77 IMAGING: Independently reviewed 06/26/2022 abdominal x-ray demonstrating moderate stool burden of the ascending colon with small bowel large bowel gaseous distention without free air. This is my independent interpretation. RADIOLOGY: Report reviewed. 06/26/2022 Abdominal x-ray demonstrates gaseous distention with stool along the cecum. ECHO: Mild to moderate pericardial effusion. Ejection fraction 50-55%. Inferior basal hypokinesis. ASSESSMENT: 1. Abdominal pain with colonic distention 2. Chronic constipation 3. Pericardial effusion 4. Family history colon cancer PLAN: 1. Recommend beats. CT of the abdomen and pelvis as her symptoms has change even during her current hospitalization. 2. Will need report from outside institution for recent colonoscopy. May benefit from repeat pending results. 3. At this time, patient is tolerating regular diet. We'll continue to monitor. ADVANCE DIRECTIVE: Thank you for this kind consultation. Past Medical History Past Medical History: Hypertension, Thyroid Disorder Additional Past Medical History / Comment(s): Interstitial cystitis,Intraparenchymal cyst,brain tumor,high cholesterol,complex partial seizures,hemmerroids. 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 OSTEOPOROSIS. History of Any Multi-Drug Resistant Organisms: None Reported Past Surgical History: Hysterectomy, Tonsillectomy Additional Past Surgical History / Comment(s): CLARISSA/BSO in 1984. Right breast biopsy. Cataract r eye implant,L eye implant. Colonoscopy 2019(multiple in past, next after 5yrs). Past Anesthesia/Blood Transfusion Reactions: No Reported Reaction Past Psychological History: No Psychological Hx Reported Smoking Status: Never smoker Past Alcohol Use History: None Reported Past Drug Use History: None Reported - Past Family History Father Family Medical History: Cancer Additional Family Medical History / Comment(s): Colon cancer. Paternal grandfa ther and grandmother both had colon cancer. Mother Family Medical History: Hypertension Additional Family Medical History / Comment(s): Dementia Sister(s) Family Medical History: Diabetes Mellitus Medications and Allergies Home Medications Medication Instructions Recorded Confirmed Type Atorvastatin [Lipitor] 10 mg PO W/SUPPER 08/07/18 06/23/22 History Ubidecarenone [Co Q-10] 200 mg PO W/SUPPER 08/07/18 06/23/22 History lamoTRIgine [LaMICtal] 150 mg PO BID 09/15/20 06/23/22 History L.acidoph,Paracasei, B.lactis 1 cap PO W/SUPPER 11/03/20 06/23/22 History [Probiotic] Biotin 2,000 Mcg 2,000 mcg PO DAILY 06/23/22 06/23/22 History Calcium Carbonate [Calcium] 1,200 mg PO DAILY 06/23/22 06/23/22 History Cholecalciferol [Vitamin D3 (25 25 mcg PO W/SUPPER 06/23/22 06/23/22 History Mcg = 1000 Iu)] Levothyroxine Sodium [Synthroid] 50 mcg PO DAILY 06/23/22 06/23/22 History Multivitamin (With No Iodine) 1 tab PO W/SUPPER 06/23/22 06/23/22 History Pantoprazole [Protonix] 40 mg PO AC-BRKFST 06/23/22 06/23/22 History Spironolactone 25 mg PO BID 06/23/22 06/23/22 History carvediloL [Coreg] 12.5 mg PO BID 06/23/22 06/23/22 History cloBAZam 20 mg PO BID 06/23/22 06/23/22 History traZODone HCL [Desyrel] 100 mg PO HS 06/23/22 06/23/22 History Allergies Allergy/AdvReac Type Severity Reaction Status Date / Time iodine AdvReac Intermediate Nausea & Verified 06/23/22 20:48 Vomiting orphenadrine [From Norflex] AdvReac Intermediate Nausea Verified 06/23/22 20:48 phenobarbital AdvReac Intermediate Nausea Verified 06/23/22 20:48 propranolol [From Inderal LA] AdvReac Intermediate Nausea Verified 06/23/22 20:48 sulfabenzamide AdvReac Intermediate Nausea Verified 06/23/22 20:48 erythromycin base AdvReac Nausea Verified 06/23/22 20:48 Milk Containing Products AdvReac Diarrhea Verified 06/23/22 20:48 [Dairy] ofloxacin [From Floxin] AdvReac Nausea Verified 06/23/22 20:48 shellfish derived [Shellfish] AdvReac Rash/Hives Verified 06/23/22 20:48 Sulfa (Sulfonamide AdvReac Nausea & Verified 06/23/22 20:48 Antibiotics) Vomiting terfenadine [From Seldane] AdvReac Nausea Verified 06/23/22 20:48 Surgical - Exam Vital Signs Temp Pulse Resp BP Pulse Ox 98.2 F 60 20 118/68 99 06/23/22 12:27 06/23/22 12:27 06/23/22 12:27 06/23/22 12:27 06/23/22 12:27 Results - Labs 06/23/22 14:43 06/26/22 09:12 Abnormal Lab Results - Last 24 Hours (Table) 06/26/22 Range/Units 09:12 Sodium 133 L (137-145) mmol/L Diabetes panel 06/26/22 Range/Units 09:12 Sodium 133 L (137-145) mmol/L Potassium 4.1 (3.5-5.1) mmol/L Chloride 98 (98-107) mmol/L Carbon Dioxide 26 (22-30) mmol/L BUN 13 (7-17) mg/dL Creatinine 0.77 (0.52-1.04) mg/dL Glucose 75 (74-99) mg/dL Calcium 8.8 (8.4-10.2) mg/dL Calcium panel 06/26/22 Range/Units 09:12 Calcium 8.8 (8.4-10.2) mg/dL Pituitary panel 06/26/22 Range/Units 09:12 Sodium 133 L (137-145) mmol/L Potassium 4.1 (3.5-5.1) mmol/L Chloride 98 (98-107) mmol/L Carbon Dioxide 26 (22-30) mmol/L BUN 13 (7-17) mg/dL Creatinine 0.77 (0.52-1.04) mg/dL Glucose 75 (74-99) mg/dL Calcium 8.8 (8.4-10.2) mg/dL Adrenal panel 06/26/22 Range/Units 09:12 Sodium 133 L (137-145) mmol/L Potassium 4.1 (3.5-5.1) mmol/L Chloride 98 (98-107) mmol/L Carbon Dioxide 26 (22-30) mmol/L BUN 13 (7-17) mg/dL Creatinine 0.77 (0.52-1.04) mg/dL Glucose 75 (74-99) mg/dL Calcium 8.8 (8.4-10.2) mg/dL
[2022-06-26 14:14] LABS: ALT 17 U/L (4-34); AST 23 U/L (14-36); Amylase 118 U/L (30-110)
--- NOTE | 2022-06-26 15:09 | CT ---
EXAMINATION TYPE: CT abdomen pelvis wo con DATE OF EXAM: 06/26/2022 COMPARISON: None HISTORY: abd pain CT DLP: 354.7 mGycm Automated exposure control for dose reduction was used. Images obtained from the diaphragm to the floor the pelvis without contrast. The lung bases are clear. No pleural effusion. Heart size is normal. There is small pericardial effus ion. Liver and spleen are intact. No pancreatic mass. There is no adrenal mass. There is enlargement of the right renal pelvis. Right ureter does not appea r dilated. Bladder distends smoothly. No sign of a ureteral calculus. No retroperitoneal adenopathy. There is retained fecal material in the right colon. I do not see evidence of a mechanical bowel obst ruction. No free fluid in the pelvis. There is some mild small bowel mesenteric edema. No evidence of free air. The lumbar vertebra show a degenerative first-degree L4-5 spondylolisthesis. No compression fracture. Bony pelvis is intact. The hip joints are intact. IMPRESSION: There is constipation. No sign of volvulus. There is right-sided hydronephrosis but no definite calcu hanh seen. No renal atrophy. Small pericardial effusion. Mild small bowel mesenteric edema of uncertain significance.
[2022-06-26] MEDS: traZODone HCL 100 MG TAB PO SCH (21:23)
[2022-06-26] MEDS: ATORVASTATIN 10 MG TAB PO SCH (21:23)
[2022-06-27] MEDS: SODIUM CHLORIDE 0.9% 1,000 ML IV SCH ×2 (05:57→14:48)
[2022-06-27 07:46] LABS: ALT 16 U/L (4-34); AST 23 U/L (14-36); African American GFR (CKD) >90 (>60 ml/min/1.73 sqM); Albumin 3.8 g/dL (3.5-5.0); Alkaline Phosphatase 71 U/L (38-126); Anion Gap 7 mmol/L; Blood Urea Nitrogen 10 mg/dL (7-17); Calcium 8.4 mg/dL (8.4-10.2); Carbon Dioxide 27 mmol/L (22-30); Chloride 102 mmol/L (98-107); Glucose 91 mg/dL (74-99); Non-African American GFR(CKD) 83 (>60 ml/min/1.73 sqM); Potassium 3.7 mmol/L (3.5-5.1); Sodium 136 mmol/L (137-145); Total Bilirubin 0.5 mg/dL (0.2-1.3); Total Protein 5.9 g/dL (6.3-8.2)
[2022-06-27] MEDS: HEPARIN SODIUM,PORCINE/PF 5,000 UNIT/0.5 ML SYRINGE SQ SCH ×2 (10:02→20:12)
[2022-06-27] MEDS: PANTOPRAZOLE 40 MG TABLET PO SCH (10:03)
[2022-06-27] MEDS: LEVOTHYROXINE 50 MCG TAB PO SCH (10:03)
[2022-06-27] MEDS: lamoTRIgine 100 MG TAB PO SCH ×2 (10:03→20:11)
[2022-06-27] MEDS: BIOTIN 1000 MCG PO SCH (10:03)
[2022-06-27] MEDS: LACTOBACILLUS ACIDOPH & BULGAR 1 EACH PACKET PO SCH (10:03)
[2022-06-27] MEDS: CHOLECALCIFEROL 25 MCG (1000 IU) TABLET PO SCH (10:03)
[2022-06-27] MEDS: carvediloL 6.25 MG TAB PO SCH ×2 (10:03→17:52)
[2022-06-27] MEDS: ONFI 20 MG PO SCH ×2 (11:01→20:20)
[2022-06-27] MEDS: NON FORMULARY DRUG (Ubidecarenone [Co Q-10] 100 MG Capsule) PO SCH (11:01)
--- NOTE | 2022-06-27 13:39 | P.GSCN ---
History of Present Illness Consult date: 06/27/22 History of present illness: 76-year-old female presents with history of chronic constipation. She is known to me from the outpatient setting as I did perform a colonoscopy on her approximately 3 weeks ago. She states that since that time, she has only had very small formed bowel movements that occurred after taking lactulose that was prescribed by her primary care physician. Prior to these past few weeks, the patient has been dealing with constipation. Since being admitted, patient has had enemas and lactulose without any significant bowel function. She feels as if she has pressure in the abdomen and a tightness. CT of the abdomen and pelvis was performed with finding of stool burden in the right colon.She denies any significant nausea or vomiting. She is tolerating a diet at this time. Review of Systems All systems: negative Past Medical History Past Medical History: Hypertension, Thyroid Disorder Additional Past Medical History / Comment(s): Interstitial cystitis,Intraparenchymal cyst,brain tumor,high cholesterol,complex partial seizures,hemmerroids. 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 OSTEOPOROSIS. History of Any Multi-Drug Resistant Organisms: None Reported Past Surgical History: Hysterectomy, Tonsillectomy Additional Past Surgical History / Comment(s): CLARISSA/BSO in 1984. Right breast biopsy. Cataract r eye implant,L eye implant. Colonoscopy 2019(multiple in past, next after 5yrs). Past Anesthesia/Blood Transfusion Reactions: No Reported Reaction Past Psychological History: No Psychological Hx Reported Smoking Status: Never smoker Past Alcohol Use History: None Reported Past Drug Use History: None Reported - Past Family History Father Family Medical History: Cancer Additional Family Medical History / Comment(s): Colon cancer. Paternal grandfather and grandmother both had colon cancer. Mother Family Medical History: Hypertension Additional Family Medical History / Comment(s): Dementia Sister(s) Family Medical History: Diabetes Mellitus Medications and Allergies Home Medications Medication Instructions Recorded Confirmed Type Atorvastatin [Lipitor] 10 mg PO W/SUPPER 08/07/18 06/23/22 History Ubidecarenone [Co Q-10] 200 mg PO W/SUPPER 08/07/18 06/23/22 History lamoTRIgine [LaMICtal] 150 mg PO BID 09/15/20 06/23/22 History L.acidoph,Paracasei, B.lactis 1 cap PO W/SUPPER 11/03/20 06/23/22 History [Probiotic] Biotin 2,000 Mcg 2,000 mcg PO DAILY 06/23/22 06/23/22 History Calcium Carbonate [Calcium] 1,200 mg PO DAILY 06/23/22 06/23/22 History Cholecalciferol [Vitamin D3 (25 25 mcg PO W/SUPPER 06/23/22 06/23/22 History Mcg = 1000 Iu)] Levothyroxine Sodium [Synthroid] 50 mcg PO DAILY 06/23/22 06/23/22 History Multivitamin (With No Iodine) 1 tab PO W/SUPPER 06/23/22 06/23/22 History Pantoprazole [Protonix] 40 mg PO AC-BRKFST 06/23/22 06/23/22 History Spironolactone 25 mg PO BID 06/23/22 06/23/22 History carvediloL [Coreg] 12.5 mg PO BID 06/23/22 06/23/22 History cloBAZam 20 mg PO BID 06/23/22 06/23/22 History traZODone HCL [Desyrel] 100 mg PO HS 06/23/22 06/23/22 History Allergies Allergy/AdvReac Type Severity Reaction Status Date / Time iodine AdvReac Intermediate Nausea & Verified 06/23/22 20:48 Vomiting orphenadrine [From Norflex] AdvReac Intermediate Nausea Verified 06/23/22 20:48 phenobarbital AdvReac Intermediate Nausea Verified 06/23/22 20:48 propranolol [From Inderal LA] AdvReac Intermediate Nausea Verified 06/23/22 20:48 sulfabenzamide AdvReac Intermediate Nausea Verified 06/23/22 20:48 erythromycin base AdvReac Nausea Verified 06/23/22 20:48 Milk Containing Products AdvReac Diarrhea Verified 06/23/22 20:48 [Dairy] ofloxacin [From Floxin] AdvReac Nausea Verified 06/23/22 20:48 shellfish derived [Shellfish] AdvReac Rash/Hives Verified 06/23/22 20:48 Sulfa (Sulfonamide AdvReac Nausea & Verified 06/23/22 20:48 Antibiotics) Vomiting terfenadine [From Seldane] AdvReac Nausea Verified 06/23/22 20:48 Surgical - Exam Osteopathic Statement: *. No significant issues noted on an osteopathic structural exam other than those noted in the History and Physical/Consult. Vital Signs Temp Pulse Resp BP Pulse Ox 98.2 F 60 20 118/68 99 06/23/22 12:27 06/23/22 12:27 06/23/22 12:27 06/23/22 12:27 06/23/22 12:27 - General well nourished, no distress - Eyes normal ocular movement - ENT no hearing loss - Neck trachea midline - Respiratory normal respiratory effort - Abdomen Abdomen: soft, non tender - Psychiatric oriented to time, oriented to person, oriented to place Results - Labs 06/23/22 14:43 06/27/22 06:51 Abnormal Lab Results - Last 24 Hours (Table) 06/26/22 06/27/22 Range/Units 13:31 06:51 Sodium 136 L (137-145) mmol/L Total Protein 5.9 L (6.3-8.2) g/dL Amylase 118 H (30-110) U/L Diabetes panel 06/26/22 06/27/22 Range/Units 13:31 06:51 Sodium 136 L (137-145) mmol/L Potassium 3.7 (3.5-5.1) mmol/L Chloride 102 (98-107) mmol/L Carbon Dioxide 27 (22-30) mmol/L BUN 10 (7-17) mg/dL Creatinine 0.71 (0.52-1.04) mg/dL Glucose 91 (74-99) mg/dL Calcium 8.4 (8.4-10.2) mg/dL AST 23 23 (14-36) U/L ALT 17 16 (4-34) U/L Alkaline Phosphatase 71 (38-126) U/L Total Protein 5.9 L (6.3-8.2) g/dL Albumin 3.8 (3.5-5.0) g/dL Calcium panel 06/27/22 Range/Units 06:51 Calcium 8.4 (8.4-10.2) mg/dL Albumin 3.8 (3.5-5.0) g/dL Pituitary panel 06/27/22 Range/Units 06:51 Sodium 136 L (137-145) mmol/L Potassium 3.7 (3.5-5.1) mmol/L Chloride 102 (98-107) mmol/L Carbon Dioxide 27 (22-30) mmol/L BUN 10 (7-17) mg/dL Creatinine 0.71 (0.52-1.04) mg/dL Glucose 91 (74-99) mg/dL Calcium 8.4 (8.4-10.2) mg/dL Adrenal panel 06/26/22 06/27/22 Range/Units 13:31 06:51 Sodium 136 L (137-145) mmol/L Potassium 3.7 (3.5-5.1) mmol/L Chloride 102 (98-107) mmol/L Carbon Dioxide 27 (22-30) mmol/L BUN 10 (7-17) mg/dL Creatinine 0.71 (0.52-1.04) mg/dL Glucose 91 (74-99) mg/dL Calcium 8.4 (8.4-10.2) mg/dL Total Bilirubin 0.5 (0.2-1.3) mg/dL AST 23 23 (14-36) U/L ALT 17 16 (4-34) U/L Alkaline Phosphatase 71 (38-126) U/L Total Protein 5.9 L (6.3-8.2) g/dL Albumin 3.8 (3.5-5.0) g/dL Assessment and Plan Plan: 76-year-old female with constipation. Patient has had no success with enemas and lactulose so far during this admission. We will attempt further evacuation of the bowel with bowel prep and Senokot. I also did discuss with the patient and the primary service that secondary to chronic constipation, patient would benefit significantly from gastroenterology evaluation. Apparently, gastroenterology is not available for consult this week in this facility.
[2022-06-27] MEDS ORDERED: PEG 3350 (236 GM/BTL) + LYTES 4,000 ML BOTTLE PO ONE (14:00)
--- NOTE | 2022-06-27 14:16 | P.PN ---
Subjective Progress Note Date: 06/27/22 HISTORY OF PRESENT ILLNESS: Patient is a pleasant 76-year-old female patient who was admitted to the hospital with pericardial effusion and also hematuria. We consulted to see the patient because a computed tomography scan showed pericardial effusion. Further investigation including an echocardiogram showed [id number] pericardial effusion with no tamponade physiology noted. June 252019 The patient was seen this morning. She remains asymptomatic from a cardio vascular standpoint of view. Hemodynamically is having marginally low blood pressure but about 90 mm systolic. I'm going to decrease the dose of carvedilol. She does have thyroid disease which could be responsible for the pericardial effusion. Otherwise she reports no pain in the chest and no sh ortness of breath and no dizziness or lightheadedness and no feeling of heart racing or fluttering or presyncope or syncope. June 262019 The patient was seen this morning. She is asymptomatic from the cardiovascular standpoint. She is hemodynamically stable. From a cardiovascular standpoint of view, patient can be discharged home. As an outpatient echocardiogram needs to be done to assess for any improvement in the pericardial effusion which is likely related to thyroid disease 06/27/2022 Patient examined this morning at the bedside. Patient denies chest pain or pressure. She denies shortness of breath. Vital signs are stable. She is being followed by general surgery for constipation. PHYSICAL EXAM: VITAL SIGNS: Reviewed. GENERAL: Well-developed in no acute distress. NECK: Supple. No JVD or thyromegaly LUNGS: Respirations even and unlabored. Lungs essentially clear to auscultation bilaterally. HEART: Regular rate and rhythm. S1 and S2 heard. EXTREMITIES: Normal range of motion. No clubbing or cyanosis. Peripheral pulse s intact. No lower extremity edema ASSESSMENT: [id number] pericardial effusion with no tamponade physiology Thyroid disease Hematuria Marginal Low Blood Pressure, resolved PLAN: Patient is currently stable from a cardiac standpoint We will sign off. Please reconsult if needed. Patient to follow up outpatient with Dr. Kendrick for monitoring of her pericardial effusion Nurse practitioner note has been reviewed by physician. Signing provider agrees with the documented findings, assessment, and plan of care. Objective - Vital Signs Vital signs: Vital Signs Temp 98.2 F 06/27/22 04:00 Pulse 75 06/27/22 08:00 Resp 16 06/27/22 08:00 BP 104/41 09/19/22 04:00 Pulse Ox 96 06/27/22 04:00 FiO2 Intake & Output 06/26/22 06/27/22 06/27/22 18:59 06:59 18:59 Intake Total 180 118 Balance 180 118 Intake: Oral 180 118 Other: Voiding Method Toilet Toilet Toilet # Voids 1 1 - Labs CBC & Chem 7: 06/23/22 14:43 06/27/22 06:51 Labs: Abnormal Lab Results - Last 24 Hours (Table) 06/26/22 06/27/22 Range/Units 13:31 06:51 Sodium 136 L (137-145) mmol/L Total Protein 5.9 L (6.3-8.2) g/dL Amylase 118 H (30-110) U/L
--- NOTE | 2022-06-27 16:32 | P.PN ---
Subjective Progress Note Date: 06/27/22 This is a 76 year old female with medical history of hypertension, hypothyroidism, benign brain tumor, complex partial seizures, never smoker, high cholesterol. She presents to the emergency center sent in from Dr Leach office for further evaluation of pericardial eff[place]. [place] evaluation for blood in the urine. States they did pelvic exam. Blood in the urine has resolved. During that time she also had right sided abdominal pain that radiated down. She had abdominal CT completed during that hospital stay and was found to have right sided hydronephrosis and also incidental finding of cardiomegaly and pericardial effusion. States they also found retained fecal material and colonoscopy was performed which was negative work up. She wanted to come home and see PCP, and was discharged. She was not evaluated by urology. No fever or chills, no chest pain, no shortness of breath, denies dizziness or lightheadedness. Denies nausea or vomiting. States she has not had a normal BM since october and only passes bits and pieces at a time. Patient has never followed with cardiology prior. She is admitted to the hospital for pericardial effusion, cardiology has been consulted. Echocardiogram shows mild to moderate pericardial effusion with normal LV size and function. Labs on admission showing white count 3.5, hgb 11.6, sodium 139, potassium 4.4, BUN 16, creatinine 0.83, liver enzymes within normal limits. Troponin negative, proBNP 329. Urinalysis showing negative blood, there is small leukocyte esterase not sugestive of UTI. 06/25/2022 Patient is monitored today on step down unit. She had echocardiogram done showing mild to moderate pericardial effusion. Follow up with cardiology outpatient. TSH was checked at 2.650. She had a dose of lactulose last night with no BM. Abdominal xray showing large stool burden. Fleet enema will be given today. She did complain of some crampy left lower abdominal pain this morning and she does have some distention and there appears to be stool burden there. If no BM with fleet enema okay to give a soap suds enema. Her sodium is on the lower side at 130 and also blood pressure marginal, her coreg has been decreased by cardiology. Fluids were increased to 0.9 normal saline at 75 mls/hr. 06/26/2022 Patient continues with complaints of right sided abdominal pain with radiation. She does have stool burden in the cecum and was given a fleet enema yesterday and will receive a soap suds enema today. Kidney function remains stable and she continues on 0.9 normal saline. Sodium has improved to 133. Patient will be evaluated by general surgery regarding for abdominal pain, colonic distention and constipation. Blood pressure 117/60. Stable for discharge from cardiology perspective. 06/27/2022 Patient continues with abdominal pain right sided with distention. She was evaluated by general surgery. She reportedly had colonoscopy [address] Tucker who has taken over for general surgery consultation. She will be given bowel prep today for constipation. She has received lactulose and enemas and unsuccessful to elicit BM. Cardiology following and recommending outpatient follow up and monitoring of pericardial effusion. Creatinine stable. Sodium has improved to 135. PHYSICAL EXAMINATION: GENERAL: The patient is alert and oriented x3, not in any acute distress. Well developed, well nourished. HEENT: Pupils are round and equally reacting to light. EOMI. No scleral icterus. No conjunctival pallor. Normocephalic, atraumatic. No pharyngeal erythema. No thyromegaly. CARDIOVASCULAR: S1 and S2 present. No murmurs, rubs, or gallops. PULMONARY: Chest is clear to auscultation, no wheezing or crackles. ABDOMEN: Soft, tender, distended, normoactive bowel sounds. No palpable organomegaly. MUSCULOSKELETAL: No joint swelling or deformity. EXTREMITIES: No cyanosis, clubbing, or pedal edema. NEUROLOGICAL: Gross neurological examination did not reveal any focal deficits. SKIN: No rashes. Assessment and Plan Assessment Mild to moderate pericardial effusion, no evidence of cardiac tamponade outpatient follow up Right hydronephrosis with normal kidney function Recent reports of hematuria currently resolved Hyponatremia, hypvolemic with poor oral intake improving with IV fluids History of hypertension currently normotensive Benign brain tumor follows at [facility] Dyslipidemia Hypothyroidism Seizure disorder stable on medications Chronic constipation Status post hysterectomy and bilateral salipingoophrectomy with hypoechoic area left adnexa found on ultrasound GI Prophylaxis DVT Prophylaxis Full Code Plan Hold Aldactazide Beta tl decreased General surgery consultation for further evaluation Patient will be given bowel prep today for constipation Surgery recommending GI consultation for constipation and this will need to be done outpatient there are no GI services available currently. If surgery wants GI evaluation prior to discharge patient will need to be transferred to tertiary care center for further evaluation. Follow up with primary care, cardiology, and glove cuffer outpatient The impression and plan of care has been dictated by Sue Cotto, Nurse Practitioner as directed. Dr. Danny MD I have performed a history and physical examination and medical decision making of this patient, discussed the same with the dictator, and agree with the dictators assessment and plan as written, documented as a scribe. Based on total visit time, I have performed more than 50% of this visit. Objective - Vital Signs Vital signs: Vital Signs Temp 97.8 F 06/27/22 16:00 Pulse 68 06/27/22 16:00 Resp 16 06/27/22 16:00 BP 136/68 06/27/22 16:00 Pulse Ox 100 06/27/22 16:00 FiO2 Intake & Output 06/26/22 06/27/22 06/27/22 18:59 06:59 18:59 Intake Total 180 236 Balance 180 236 Intake: Oral 180 236 Other: Voiding Method Toilet Toilet Toilet # Voids 1 1 - Labs CBC & Chem 7: 06/23/22 14:43 06/27/22 06:51 Labs: Abnormal Lab Results - Last 24 Hours (Table) 06/27/22 Range/Units 06:51 Sodium 136 L (137-145) mmol/L Total Protein 5.9 L (6.3-8.2) g/dL Assessment and Plan Time with Patient: Less than 30
[2022-06-27] MEDS: ATORVASTATIN 10 MG TAB PO SCH (20:11)
[2022-06-27] MEDS: traZODone HCL 100 MG TAB PO SCH (20:12)
[2022-06-27] MEDS: SENNOSIDES 8.6 MG TAB PO SCH (20:12)
[2022-06-28] MEDS: SODIUM CHLORIDE 0.9% 1,000 ML IV SCH (05:32)
[2022-06-28] MEDS: carvediloL 6.25 MG TAB PO SCH (06:20)
[2022-06-28] MEDS: LEVOTHYROXINE 50 MCG TAB PO SCH (06:21)
[2022-06-28] MEDS: PANTOPRAZOLE 40 MG TABLET PO SCH (06:21)
[2022-06-28] MEDS ORDERED: LACTULOSE 20 GM/30 ML CUP PO SCH (09:00)
[2022-06-28] MEDS: BIOTIN 1000 MCG PO SCH (09:59)
[2022-06-28] MEDS: CHOLECALCIFEROL 25 MCG (1000 IU) TABLET PO SCH (10:01)
[2022-06-28] MEDS: LACTOBACILLUS ACIDOPH & BULGAR 1 EACH PACKET PO SCH (10:03)
[2022-06-28] MEDS: lamoTRIgine 100 MG TAB PO SCH (10:05)
[2022-06-28] MEDS: SENNOSIDES 8.6 MG TAB PO SCH (10:07)
[2022-06-28] MEDS: ONFI 20 MG PO SCH (10:21)
[2022-06-28] MEDS: HEPARIN SODIUM,PORCINE/PF 5,000 UNIT/0.5 ML SYRINGE SQ SCH (10:21)
[2022-06-28] MEDS: NON FORMULARY DRUG (Ubidecarenone [Co Q-10] 100 MG Capsule) PO SCH (12:47)
[2022-06-28 14:11] VITALS: BP 128/72; PULSE 70; TEMP 98.1
--- NOTE | 2022-06-29 22:26 | P.DS ---
Providers Date of admission: 06/23/22 19:40 Attending physician: Joshua Gusman MD Consults: 06/26/22 11:16 Consult Physician Routine Consulting Provider: Keenan Maradiaga Consult Reason/Comments: Abdominal pain, colonic distention, constipation Do you want consulting provider notified?: Yes 06/27/22 07:47 Consult Physician Stat Consulting Provider: Aida Tucker Consult Reason/Comments: No bowel movement since colonoscopy with Dr Tucker 3 weeks ago Do you want consulting provider notified?: Yes Primary care physician: [facility] Course: Diagnosis Mild to moderate pericardial effusion, no evidence of cardiac tamponade outpatient follow up, pericardial appears resolving on repeat abdomen CT. Right hydronephrosis with normal kidney function Recent reports of hematuria currently resolved Hyponatremia, hypvolemic with poor oral intake improving with IV fluids History of hypertension currently normotensive Benign brain tumor follows at [facility] Dyslipidemia Hypothyroidism Seizure disorder stable on medications Chronic constipation Status post hysterectomy and bilateral salipingoophrectomy with hypoechoic area left adnexa found on ultrasound Full Code Discharge Disposition Patient is stable for discharge. Recommend to see primary care provider in 1 to 2 days. Repeat BMP in 2 to 3 days. Patient is discharge on lactulose as needed. Carvedilol has been decreased to 6.25 mg twice a day. Hospital Course This is a 76 year old female with medical history of hypertension, hypothyroidism, benign brain tumor, complex partial seizures, never smoker, high cholesterol. She presents to the emergency center sent in from Dr Leach office for further evaluation of pericardial effusion. [place] evaluation for blood in the urine. States they did pelvic exam. Blood in the urine has resolved. During that time she also had right sided abdominal pain that radiated down. She had abdominal CT completed during that hospital stay and was found to have right sided hydronephrosis and also incidental finding of cardiomegaly and pericardial effusion. States they also found retained fecal material. Patient was discharged. She had outpatient colonoscopy about 3 weeks ago. States was normal exam. No fever or chills, no chest pain, no shortness of breath, no denies dizziness or lightheadedness. Denies nausea or vomiting. States she has not had a normal BM since october and only passes bits and pieces at a time. Patient has never followed with cardiology prior. She is admitted to the hospital for pericardial effusion, cardiology has been consulted. Echocardiogram shows mild to moderate pericardial effusion with normal LV size and function. Labs on admission showing white count 3.5, hgb 11.6, sodium 139, potassium 4.4, BUN 16, creatinine 0.83, liver enzymes within normal limits. Troponin negative, proBNP 329. Urinalysis showing negative blood, there is small leukocyte esterase not sugestive of UTI. TSH was checked at 2.650. Patient had complaints of right sided abdominal pain and abdominal xray performed showing large stool burden and patient was given lactulose x 2, fleet enema and soap suds enema and unable to produce bowel movement. General surgery was consulted and repeat abdominal pelvis CT performed and showing constipation, no volvulus. Right sided hydronephrosis with no definite calculus seen, no renal atrophy. There is small pericardial effusion. There is small bowel mesenteric edema of uncertain significance. Patient was given bowel prep and she passed a large quantity of stool and states with drinking 1/2 the bowel prep completed she is passing clear liquid. Patient was also gently hydrated during this hospital stay and sodium had improved to 136. Cardiology has cleared for discharge, general surgery has also cleared. for discharge. 06/28/2021 Patient is evaluated today sitting up in room. Reports passing a large amount of stool and abdominal pain has improved. No nausea, vomiting. No chest pain, no shortness of breath. Reports no hematuria, dysuria, or urinary retention. Her lungs are clear, S1 S2 auscultated regular rate and rhythm, no murmur, no friction rub, abdomen is soft and nontender, patient is alert x3 oriented. No focal neurological deficits. Labs today showing sodium 136, potassium 3.7, BUN 10, creatinine 0.71, magnesium 2.0. Amylase 118. Temperature 98.1, heart rate 70 blood pressure 128/72, 98% room air. Please see medication reconciliation for a list of current medication. Thank you for allowing us to participate in the care of this patient. The impression and plan of care has been dictated by Sue Cotto, Nurse Practitioner as directed. Dr. Danny MD I have performed a history and physical examination and medical decision making of this patient, discussed the same with the dictator, and agree with the dictators assessment and plan as written, documented as a scribe. Based on total visit time, I have performed more than 50% of this visit. Patient Condition at Discharge: Stable Plan - Discharge Summary Discharge Rx Participant: No New Discharge Prescriptions: New Lactulose [Cephulac] 20 gm PO DAILY PRN #180 ml PRN Reason: Constipation carvediloL [Coreg] 6.25 mg PO AC-BID #60 tab Sennosides [Senokot] 8.6 mg PO DAILY PRN #15 tab PRN Reason: Constipation Continue Ubidecarenone [Co Q-10] 200 mg PO W/SUPPER Atorvastatin [Lipitor] 10 mg PO W/SUPPER lamoTRIgine [LaMICtal] 150 mg PO BID L.acidoph,Paracasei, B.lactis [Probiotic] 1 cap PO W/SUPPER cloBAZam 20 mg PO BID Cholecalciferol [Vitamin D3 (25 Mcg = 1000 Iu)] 25 mcg PO W/SUPPER Biotin 2,000 Mcg 2,000 mcg PO DAILY Multivitamin (With No Iodine) 1 tab PO W/SUPPER Spironolactone 25 mg PO BID Calcium Carbonate [Calcium] 1,200 mg PO DAILY Pantoprazole [Protonix] 40 mg PO AC-BRKFST Levothyroxine Sodium [Synthroid] 50 mcg PO DAILY traZODone HCL [Desyrel] 100 mg PO HS Discontinued carvediloL [Coreg] 12.5 mg PO BID Discharge Medication List Atorvastatin [Lipitor] 10 mg PO W/SUPPER 08/07/18 [History] Ubidecarenone [Co Q-10] 200 mg PO W/SUPPER 08/07/18 [History] lamoTRIgine [LaMICtal] 150 mg PO BID 09/15/20 [History] L.acidoph,Paracasei, B.lactis [Probiotic] 1 cap PO W/SUPPER 11/03/20 [History] Biotin 2,000 Mcg 2,000 mcg PO DAILY 06/23/22 [History] Calcium Carbonate [Calcium] 1,200 mg PO DAILY 06/23/22 [History] Cholecalciferol [Vitamin D3 (25 Mcg = 1000 Iu)] 25 mcg PO W/SUPPER 06/23/22 [History] Levothyroxine Sodium [Synthroid] 50 mcg PO DAILY 06/23/22 [History] Multivitamin (With No Iodine) 1 tab PO W/SUPPER 06/23/22 [History] Pantoprazole [Protonix] 40 mg PO AC-BRKFST 06/23/22 [History] Spironolactone 25 mg PO BID 06/23/22 [History] cloBAZam 20 mg PO BID 06/23/22 [History] traZODone HCL [Desyrel] 100 mg PO HS 06/23/22 [History] Lactulose [Cephulac] 20 gm PO DAILY PRN #180 ml 06/27/22 [Rx] Sennosides [Senokot] 8.6 mg PO DAILY PRN #15 tab 06/27/22 [Rx] carvediloL [Coreg] 6.25 mg PO AC-BID #60 tab 06/27/22 [Rx] Follow up Appointment(s)/Referral(s): Darren Moses MD [STAFF PHYSICIAN] - 1 Week Navneet Hadley MD [STAFF PHYSICIAN] - As Needed Cordell Trevizo MD [Primary Care Provider] - 1-2 days Aline Ryan DO [Doctor of Osteopathic Medicine] - 1 Week Catie Marsh MD [STAFF PHYSICIAN] - 1 Week Aida Tucker DO [Doctor of Osteopathic Medicine] - As Needed Ambulatory/Diagnostic Orders: Basic Metabolic Panel [LAB.AMB] Time Frame: 2 Days, Location: None Selected Activity/Diet/Wound Care/Special Instructions: Recommend to continue on bowel regimen on discharge. Follow up with primary care on discharge recommending in 1 to 2 days Follow up with Dr Darwin Marsh with GI services for constipation Follow up with urology for hydronephrosis Follow up with OBGYN on discharge regarding ultrasound findings for further evaluation Follow up with cardiology as needed Follow up with Dr Tucker as needed Repeat labs in 2 to 3 days outpatient Increase oral intake as tolerated Discharge Disposition: HOME SELF-CARE
== END 2022-06-28 14:09 | disposition home or self-care (01) | DRG 694 ==
LOC: EC 11:24 → 3SCARD 19:40
PROVIDERS: ADMIT Internal Medicine; ATTEND Internal Medicine
DX: N13.30 Unspecified hydronephrosis (principal); G40.209 Localization-related (focal) (partial) symptomatic epilepsy and epileptic syndromes with complex partial seizures, not intractable, without status epilepticus; E87.1 Hypo-osmolality and hyponatremia; I31.3 Pericardial effusion (noninflammatory); I11.0 Hypertensive heart disease with heart failure; N30.11 Interstitial cystitis (chronic) with hematuria; M81.0 Age-related osteoporosis without current pathological fracture; D33.2 Benign neoplasm of brain, unspecified; E03.9 Hypothyroidism, unspecified; I34.0 Nonrheumatic mitral (valve) insufficiency; K59.09 Other constipation; E78.00 Pure hypercholesterolemia, unspecified; N93.9 Abnormal uterine and vaginal bleeding, unspecified; Z79.890 Hormone replacement therapy; Z79.899 Other long term (current) drug therapy; Z86.011 Personal history of benign neoplasm of the brain; Z90.710 Acquired absence of both cervix and uterus; Z88.8 Allergy status to other drugs, medicaments and biological substances; Z91.041 Radiographic dye allergy status; Z98.42 Cataract extraction status, left eye; Z98.41 Cataract extraction status, right eye; Z96.1 Presence of intraocular lens; Z91.011 Allergy to milk products; Z91.013 Allergy to seafood
CPT/HCPCS: 36415; 71046; 74019; 74176; 76770; 80048; 80053; 81001; 82150; 83605; 83690; 83735; 83880; 84443; 84450; 84460; 84484; 85025; 93005; 93306; 99285

== ENCOUNTER → 2022-07-05 | Outpatient (CLI) | payer MEDICARE ==
[2022-07-05 11:33] VITALS: BP 118/77; PULSE 59; RESP 17; TEMP 97.6
--- NOTE | 2022-07-05 15:43 | P.HPOB ---
History of Present Illness H&P Date: 07/05/22 Chief Complaint: Abdominal pain and bleeding near the vagina 2 weeks ago. This is a 76-year-old with an LMP of 1984. She is status post CLARISSA/BSO for benign reasons. The patient states she noticed bleeding on her underwear on 06/19/2022. She believes the blood came from urine. She also is having abdominal cramping and discomfort. She has a long history of chronic constipation. She states she has not had a normal bowel movement more than 2 times over the past 7 months. She typically has very small hard stools about the size of a "Traci Kiss". She went to the emergency room at [facility] on 06/19/2022. She had a CT scan of the abdomen and pelvis and there were multiple findings including pericardial effusion, right-sided hydronephrosis, large amount of stool throughout the colon, and bladder distention. She states she had some type of pelvic exam in the emergency room and believes something was done at that time that caused vaginal pain. She is uncertain as to whether some type of tissue was removed or biopsied in the vagina. She was seen by her PCP Dr. Trevizo shortly thereafter and she was then hospitalized at [facility] on 06/23/2022. She did have a colonoscopy in April 2022 which showed diverticulosis and was otherwise unremarkable. She denies any other bleeding from the vaginal area. Another CT scan was performed at [facility] on 06/26/2022. Review of Systems She has gained 1 pound since her last exam on 11/03/2020. She denies respiratory or cardiac problems. GI: Chronic constipation as in HPI. Past Medical History Past Medical History: Hypertension, Thyroid Disorder Additional Past Medical History / Comment(s): Interstitial cystitis,Intraparenchymal cyst,brain tumor,high cholesterol,complex partial seizures,hemmerroids. 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 OSTEOPOROSIS. History of Any Multi-Drug Resistant Organisms: None Reported Past Surgical History: Hysterectomy, Tonsillectomy Additional Past Surgical History / Comment(s): CLARISSA/BSO in 1984. Right breast biopsy. Cataract r eye implant,L eye implant. Colonoscopy 2021. Past Anesthesia/Blood Transfusion Reactions: No Reported Reaction Past Psychological History: No Psychological Hx Reported Smoking Status: Never smoker Past Alcohol Use History: None Reported Past Drug Use History: None Reported Additional History: She has been since 1965 and is retired. She is not sexually active. She typically power in [place] in her RV. - Past Family History Father Family Medical History: Cancer Additional Family Medical History / Comment(s): Colon cancer. Paternal grandfather and grandmother both had colon cancer. Mother Family Medical History: Hypertension Additional Family Medical History / Comment(s): Dementia Sister(s) Family Medical History: Diabetes Mellitus Medications and Allergies Home Medications Medication Instructions Recorded Confirmed Type Atorvastatin [Lipitor] 10 mg PO W/SUPPER 08/07/18 07/05/22 History Ubidecarenone [Co Q-10] 200 mg PO W/SUPPER 08/07/18 07/05/22 History lamoTRIgine [LaMICtal] 150 mg PO BID 09/15/20 07/05/22 History L.acidoph,Paracasei, B.lactis 1 cap PO W/SUPPER 11/03/20 07/05/22 History [Probiotic] Biotin 2,000 Mcg 2,000 mcg PO DAILY 06/23/22 07/05/22 History Calcium Carbonate [Calcium] 1,200 mg PO DAILY 06/23/22 07/05/22 History Cholecalciferol [Vitamin D3 (25 25 mcg PO W/SUPPER 06/23/22 07/05/22 History Mcg = 1000 Iu)] Levothyroxine Sodium [Synthroid] 50 mcg PO DAILY 06/23/22 07/05/22 History Multivitamin (With No Iodine) 1 tab PO W/SUPPER 06/23/22 07/05/22 History Pantoprazole [Protonix] 40 mg PO AC-BRKFST 06/23/22 07/05/22 History Spironolactone 25 mg PO BID 06/23/22 07/05/22 History traZODone HCL [Desyrel] 100 mg PO HS 06/23/22 07/05/22 History Lactulose [Cephulac] 20 gm PO DAILY PRN #180 ml 06/27/22 07/05/22 Rx carvediloL [Coreg] 6.25 mg PO AC-BID #60 tab 06/27/22 07/05/22 Rx Lactulose 1 pack PO DIRECTED PRN 07/05/22 07/05/22 History Allergies Allergy/AdvReac Type Severity Reaction Status Date / Time iodine AdvReac Intermediate Nausea & Verified 07/05/22 11:24 Vomiting orphenadrine [From Norflex] AdvReac Intermediate Nausea Verified 07/05/22 11:24 phenobarbital AdvReac Intermediate Nausea Verified 07/05/22 11:24 propranolol [From Inderal LA] AdvReac Intermediate Nausea Verified 07/05/22 11:24 sulfabenzamide AdvReac Intermediate Nausea Verified 07/05/22 11:24 erythromycin base AdvReac Nausea Verified 07/05/22 11:24 Milk Containing Products AdvReac Diarrhea Verified 07/05/22 11:24 [Dairy] ofloxacin [From Floxin] AdvReac Nausea Verified 07/05/22 11:24 shellfish derived [Shellfish] AdvReac Rash/Hives Verified 07/05/22 11:24 Sulfa (Sulfonamide AdvReac Nausea & Verified 07/05/22 11:24 Antibiotics) Vomiting terfenadine [From Seldane] AdvReac Nausea Verified 07/05/22 11:24 Exam Vital Signs Temp Pulse Resp BP Pulse Ox 07/05/22 11:30 97.6 F 59 L 17 118/77 100 Intake and Output 07/05/22 07/05/22 07/05/22 06:59 14:59 22:59 Other: Weight 52.617 kg Height 5 feet 4 inches, weight 116 pounds, BMI 19.9. Limited physical exam: This is a well-developed well-nourished white female who is alert and oriented times 3 in no acute distress. ABDOMEN: Soft, nontender, with 2+ bowel sounds. There is a fullness in the epigastric region which is soft and minimally tender. The abdomen does not appear distended. There is no rebound tenderness. There are no other palpable masses other than the fullness. The area of fullness measures approximately 10 x 12 cm. PELVIC EXAM: Normal external genitalia with moderate atrophy. Vagina appear normal with mild to moderate atrophy. The vaginal cuff appears normal without lesions. There is no unusual discharge. There is no evidence of prolapse. There are no palpable adnexal masses or tenderness. EXTREMITIES: Nontender. The CT scan done at [facility] on 06/23/[address] Pérez, the radiologist. There are findings of right-sided hydronephrosis and large amount of stool throughout the colon. There is no evidence of a pelvic mass. IMPRESSION: 1. 76-year-old menopausal female status post CLARISSA/BSO for benign reasons, with single episode of bleeding in the vaginal area on 06/19/2022. The patient believes this came from the urinary tract. 2. Normal gynecologic exam today consistent with CLARISSA/BSO with no evidence of pelvic, vaginal, or vulvar neoplasia. 3. Chronic constipation which is consistent with the large amounts of stool within the colon on CT scan. 4. Right hydronephrosis without definite cause. 5. At this time I do not believe her multiple problems including hydronephrosis, chronic constipation, , abdominal pains cramping, and the single episode of bleeding in the vaginal area are gynecologic in nature. With her history of CLARISSA/BSO, her problems are much more likely urologic and or GI in nature without a gynecologic etiology. 6. Pericardial effusion of uncertain etiology. PLAN: 1. The patient states she has appointments with Dr. Hadley, the urologist and Dr. Moses, the press hand. She may also need follow-up with a GI specialist because of the chronic constipation. 2. The patient states she will try to get more information from [facility] where she had some type of pelvic exam. The patient states she may have had some tissue removed or sampled when she was in the emergency room. She states the exam hurt and was later told everything was "OK". She will let me know if there is any additional information regarding that exam. 3. She will be due for her regular well woman examination in approximately 4 months.
== END ==
LOC: WWCWWP 11:18
PROVIDERS: ATTEND Obstetrics & Gynecology
DX: N93.9 Abnormal uterine and vaginal bleeding, unspecified (principal); Z90.710 Acquired absence of both cervix and uterus; Z90.722 Acquired absence of ovaries, bilateral; K59.09 Other constipation; N13.30 Unspecified hydronephrosis; I31.3 Pericardial effusion (noninflammatory); I10 Essential (primary) hypertension; E78.00 Pure hypercholesterolemia, unspecified; E07.9 Disorder of thyroid, unspecified; Z79.890 Hormone replacement therapy; Z88.1 Allergy status to other antibiotic agents; Z88.8 Allergy status to other drugs, medicaments and biological substances; Z88.2 Allergy status to sulfonamides; Z91.013 Allergy to seafood; Z91.011 Allergy to milk products

== ENCOUNTER → 2024-04-01 | Outpatient (CLI) | payer MEDICARE ==
[2024-04-01 11:43] VITALS: BP 145/77; PULSE 75; RESP 16; TEMP 97.3
[2024-04-01] MEDS: DENOSUMAB 60 MG/ML 1 ML SYRINGE SQ NR (11:43)
== END ==
LOC: PROCWHC3 11:26
PROVIDERS: ATTEND Internal Medicine Geriatric Medicine
DX: M81.0 Age-related osteoporosis without current pathological fracture (principal)
CPT/HCPCS: 96372; J0897